=== PATIENT | male | born 1965 | race African-American/Black ===

== ENCOUNTER 2019-02-24 01:22 | Emergency (ER) | payer MEDICARE, OTHER ==
[~2019-02-24] VITALS: Ht 175.3 cm; Wt 63.6 kg
[2019-02-24 01:53] VITALS: BP 150/109
[2019-02-24] MEDS ORDERED: COREG (01:55)
[2019-02-24] MEDS ORDERED: SILVER NITRATE APPLICATOR TOP ONE (02:15)
[2019-02-24] MEDS ORDERED: CLON0.2T PO ×2 (20:17→21:35)
[2019-02-24] MEDS ORDERED: BANO25TA PO (21:35)
[2019-02-24] MEDS ORDERED: ATOR1TAB19 PO (21:35)
[2019-02-24] MEDS ORDERED: CYCL5TAB PO (21:35)
[2019-02-24] MEDS ORDERED: AMLO10TA5 PO (21:35)
[2019-02-24] MEDS ORDERED: DIPH50VL IV (21:35)
[2019-02-24] MEDS ORDERED: TUMS1000 PO (21:35)
[2019-02-24] MEDS ORDERED: CARV25TA PO (21:35)
== END 2019-02-24 02:30 | disposition home or self-care (01) ==
LOC: M ED 01:22
DX: T82.49XA Other complication of vascular dialysis catheter, initial encounter (principal); X58.XXXA Exposure to other specified factors, initial encounter; Y92.89 Other specified places as the place of occurrence of the external cause; I10 Essential (primary) hypertension; N19 Unspecified kidney failure; Z99.2 Dependence on renal dialysis; F17.210 Nicotine dependence, cigarettes, uncomplicated

== ENCOUNTER 2019-02-24 20:05 | Inpatient (IN) | payer MEDICAID, MEDICARE, SELFPAY ==
[~2019-02-24] VITALS: Ht 175.3 cm; Wt 68.0 kg
[~2019-02-24 20:05] MED LIST: COREG
[2019-02-24] MEDS ORDERED: CLON0.2T PO ×2 (20:17→21:35)
[2019-02-24] MEDS ORDERED: hydrALAZINE INJ 20 MG/ML VIAL IV STA ×3 (21:05→21:26)
[2019-02-24] MEDS ORDERED: hydrALAZINE INJ 20 MG/ML VIAL As Ordered ONE (21:06)
[2019-02-24 21:21] LABS: BASO # 0.1 10^3/uL (0.0-0.2); EOS # 0.2 10^3/uL (0.0-0.50); EOS % 2.7 % (0.0-3.0); HEMATOCRIT 39.1 % (42.0-52.0); HEMOGLOBIN 12.7 g/dl (13.5-17.5); LYMPH # 1.4 10^3/uL (1.5-4.5); LYMPH % 22.9 % (24.0-44.0); MEAN CORPUSCULAR HEMOGLOBIN 30.7 pg (27.0-33.0); MEAN CORPUSCULAR HGB CONC 32.5 g/dl (32.0-36.5); MEAN CORPUSCULAR VOLUME 94.4 fl (80.0-96.0); MONO # 0.5 10^3/uL (0.0-0.8); MONO % 8.8 % (0.0-5.0); NEUTROPHILS # 3.8 10^3/uL (1.8-7.7); NEUTROPHILS % 64.3 % (36.0-66.0); PLATELET COUNT, AUTOMATED 170 10^3/uL (150-450); RED BLOOD COUNT 4.14 10^6/uL (4.30-6.10); WHITE BLOOD COUNT 5.9 10^3/uL (4.0-10.0)
[2019-02-24] MEDS ORDERED: AMLO10TA5 PO (21:35)
[2019-02-24] MEDS ORDERED: DIPH50VL IV (21:35)
[2019-02-24] MEDS ORDERED: CYCL5TAB PO (21:35)
[2019-02-24] MEDS ORDERED: CARV25TA PO (21:35)
[2019-02-24] MEDS ORDERED: BANO25TA PO (21:35)
[2019-02-24] MEDS ORDERED: ATOR1TAB19 PO (21:35)
[2019-02-24] MEDS ORDERED: TUMS1000 PO (21:35)
[2019-02-24] MEDS ORDERED: NITROGLYCERIN IN D5W 25MG/250ML (100MCG/ML) As Ordered ONE (21:39)
[2019-02-24 21:42] LABS: CALCIUM LEVEL 9.1 MG/DL (8.5-10.1); CREATININE FOR GFR 14.3 MG/DL (0.70-1.30); GLOMERULAR FILTRATION RATE 4.7 (>56)
[2019-02-24 21:44] LABS: INR 1.08; PROTHROMBIN TIME 14.1 SECONDS (12.1-14.4)
[2019-02-24] MEDS ORDERED: MORPHINE 10 MG/ML 1ML VIAL (J2270) IV ONE (21:45)
[2019-02-24] MEDS: NITROGLYCERIN/D5W 100MCG/ML 25 MG in APPROPRIATE DILUENT 1 EA IV SCH ×2 (21:45→21:50)
[2019-02-24] MEDS ORDERED: CYCLOBENZAPRINE 5MG TABLET PO PRN (23:30)
[2019-02-24] MEDS ORDERED: diphenhydrAMINE 25 MG CAP PO PRN (23:30)
[2019-02-25] VITALS (27 sets, daily range): BP systolic 115–159; BP diastolic 63–99
[2019-02-25] MEDS: cloNIDine 0.2 MG TAB PO PRN (00:01)
[2019-02-25] MEDS ORDERED: LABETALOL HCL 100 MG/20 ML VIAL IV STA (01:04)
[2019-02-25] MEDS ORDERED: LABETALOL HCL 100 MG/20 ML VIAL As Ordered ONE (01:07)
--- NOTE | 2019-02-25 02:05 | HPEPDOC ---
General Date of Admission Feb 24, 2019 at 22:29 Chief Complaint The patient is a 53-year-old male admitted with a reason for visit of Hemorrhag e, Renal Dialysis Device Complication. 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 In ER pt was seen by vascular surgery team and AV fistula site was sutured after compression did not stop bleeding. Pt was scheduled to have surgery on March 12, 2019 at [facility] for new AV Fistula. Pt was started on iv nitro gtt due to uncontrolled hypertension. Hospitalist team was consulted to admit the pt for further management. Pt was seen and examined at bedside in ER. Pt was on nitro gtt. Pt stated that he is feeling fine and bleeding has stopped after suturing. Home Medications Scheduled Amlodipine Besylate (Amlodipine Besylate) 10 Mg Tablet, 10 MG PO 3XW, (Reported) MONDAY, MONDAY, MONDAY Atorvastatin Calcium (Atorvastatin Calcium) 10 Mg Tablet, 10 MG PO 3XW, (Reported) MONDAY, MONDAY, MONDAY Calcium Carbonate (Tums Ultra) 400 Mg Tab.chew, 800 MG PO WM, (Reported) Carvedilol (Carvedilol) 25 Mg Tablet, 25 MG PO BID, (Reported) Diphenhydramine HCl (Diphenhydramine HCl) 50 Mg/1 Ml Vial, 50 MG IV 3XW, (Reported) MONDAY, MONDAY, MONDAY AT DIALYSIS Scheduled PRN Clonidine HCl (Clonidine HCl) 0.2 Mg Tablet, 0.2 MG PO DAILY PRN for HIGH BLOOD PRESSURE, (Reported) SBP OVER 190 Cyclobenzaprine HCl (Cyclobenzaprine HCl) 5 Mg Tablet, 5 MG PO DAILY PRN for CRAMPS, (Reported) Diphenhydramine HCl (Banophen) 25 Mg Tablet, 25 MG PO DAILY PRN for ITCHING, (Reported) Allergies Coded Allergies: No Known Allergies (Unverified , 02/24/19) Past Medical History Medical History HTN, hypertensive nephropathy, ESRD on HD MWF, CHF- unknown type, nicotine dependence, HLD, AAA Surgical History AV fistula over left Arm Social History * Smoker: current smoker Alcohol: occationally h/o cocaine snorting A-FIB/CHADSVASC A-FIB History Current/History of A-Fib/PAF?: No Current Oral Anticoagulant The: No Review of Systems Other systems 10 points review of system was performed and it was negative except as per HPI Physical Examination General Exam: Positive: Alert, Cooperative, No Acute Distress Eye Exam: Positive: PERRLA, Conjunctiva & lids normal ENT Exam: Positive: Atraumatic, Mucous membr. moist/pink Neck Exam: Positive: Supple Chest Exam: Positive: Clear to auscultation, Normal air movement Heart Exam: Positive: Rate Normal, Normal S1, Normal S2 Abdomen Exam: Positive: Normal bowel sounds, Soft Extremity Exam: Positive: Normal pulses Skin Exam: Positive: Nl turgor and temperature Neuro Exam: Positive: Normal Speech, Strength at 5/5 X4 ext, Cranial Nerves 3- 12 NL Psych Exam: Positive: Mental status NL Other physical findings compression dressing in place over left arm AV fistula site Vital Signs Vital Signs Date Time Temp Pulse Resp B/P (MAP) Pulse Ox O2 Delivery O2 Flow Rate FiO2 02/25/19 01:30 86 16 125/66 (85) 02/25/19 00:30 99 02/25/19 00:20 97.5 02/25/19 00:05 Room Air Laboratory Data Labs 24H Laboratory Tests 2 02/24/19 21:10: Immature Granulocyte % (Auto) 0.3, White Blood Count 5.9, Red Blood Count 4.14L, Hemoglobin 12.7L, Hematocrit 39.1L, Mean Corpuscular Volume 94.4, Mean Corpuscular Hemoglobin 30.7, Mean Corpuscular Hemoglobin Concent 32.5, Red Cell Distribution Width 16.4H, Platelet Count 170, Neutrophils (%) (Auto) 64.3, Lymphocytes (%) (Auto) 22.9L, Monocytes (%) (Auto) 8.8H, Eosinophils (%) (Auto) 2.7, Basophils (%) (Auto) 1.0, Neutrophils # (Auto) 3.8, Lymphocytes # (Auto) 1.4L, Monocytes # (Auto) 0.5, Eosinophils # (Auto) 0.2, Basophils # (Auto) 0.1, Nucleated Red Blood Cells % (auto) 0.0, Prothrombin Time 14.1, Prothromb Time International Ratio 1.08, Activated Partial Thromboplast Time 43.0H, Anion Gap 10, Glomerular Filtration Rate 4.7L, Blood Urea Nitrogen 44H, Creatinine 14.30*H, Sodium Level 136, Potassium Level 4.0, Chloride Level 100, Carbon Dioxide Level 26, Calcium Level 9.1 CBC/BMP Laboratory Tests 02/24/19 21:10 Red Blood Count 4.14 L, Mean Corpuscular Volume 94.4, Mean Corpuscular Hemoglob in 30.7, Mean Corpuscular Hemoglobin Concent 32.5, Red Cell Distribution Width 16.4 H, Neutrophils (%) (Auto) 64.3, Lymphocytes (%) (Auto) 22.9 L, Monocytes (%) (Auto) 8.8 H, Eosinophils (%) (Auto) 2.7, Basophils (%) (Auto) 1.0, Neutrophils # (Auto) 3.8, Lymphocytes # (Auto) 1.4 L, Monocytes # (Auto) 0.5, Eosinophils # (Auto) 0.2, Basophils # (Auto) 0.1, Calcium Level 9.1 Assessment/Plan Labs reviewed 53 y/o M with h/o left arm AV fistula aneurysm came to ER c/o blood oozing from AV fistula site, found to have significantly elevated BP, AV fistula was sutured by vascular surgery. plan was to take pt to OR by vascular surgery in morning, to have temporary catheter placement for HD access. Problems (1) Renal dialysis device, implant, or graft complication Status: Acute Problem Text: bleeding from AV fistula aneurysm site s/p suturing in ER will keep pt NPO for now will f/u with vascular surgery (2) HTN (hypertension) Status: Chronic Problem Text: uncontrolled will continue home meds pt was started on iv nitro gtt for uncontrolled hypertension in view of bleeding from AV fistula site will continue iv nitro gtt for now. will uptitrate home antihypertensive and add new agents as needed. (3) HLD (hyperlipidemia) Status: Chronic Problem Text: home meds (4) Nicotine dependence Status: Chronic Problem Text: pt was counselled about smoking cessation (5) ESRD (end stage renal disease) Status: Chronic Problem Text: will f/u with nephrology service for HD (6) CHF (congestive heart failure) Status: Chronic Problem Text: unknown will get medical records from PMD in morning home meds (7) AAA (abdominal aortic aneurysm) Status: Chronic Problem Text: on surveillance US As per pt his AAA is stable will get medical records from PMD Plan / VTE VTE Prophylaxis Ordered?: No VTE Exclusion Pharmacological: Bleeding Risk ARTHUR DAILEY MD Feb 25, 2019 02:04
[2019-02-25] MEDS ORDERED: diphenhydrAMINE INJ 50MG/ML VIAL (J1200) IV STA (02:33)
[2019-02-25] MEDS: NITROGLYCERIN/D5W 100MCG/ML 25 MG in APPROPRIATE DILUENT 1 EA IV SCH ×4 (04:11→19:13)
[2019-02-25 05:08] LABS: HEMATOCRIT 34.4 % (42.0-52.0); HEMOGLOBIN 11.2 g/dl (13.5-17.5); MEAN CORPUSCULAR HEMOGLOBIN 30.4 pg (27.0-33.0); MEAN CORPUSCULAR HGB CONC 32.6 g/dl (32.0-36.5); MEAN CORPUSCULAR VOLUME 93.2 fl (80.0-96.0); PLATELET COUNT, AUTOMATED 164 10^3/uL (150-450); RED BLOOD COUNT 3.69 10^6/uL (4.30-6.10); WHITE BLOOD COUNT 7.4 10^3/uL (4.0-10.0)
[2019-02-25 05:20] LABS: INR 1.12; PROTHROMBIN TIME 14.6 SECONDS (12.1-14.4)
[2019-02-25 05:41] LABS: CALCIUM LEVEL 9.2 MG/DL (8.5-10.1); CREATININE FOR GFR 15.5 MG/DL (0.70-1.30); GLOMERULAR FILTRATION RATE 4.3 (>56); POTASSIUM SERUM 3.9 MEQ/L (3.5-5.1)
[2019-02-25] MEDS ORDERED: CALCIUM CARBONATE 500 MG CHEW U/D PO SCH (08:00)
[2019-02-25] MEDS: ATORVASTATIN 10 MG TAB PO SCH (08:35)
[2019-02-25] MEDS: CARVedilol 12.5 MG TAB PO SCH ×2 (08:35→20:38)
[2019-02-25] MEDS: amLODIPine 10 MG TAB PO SCH (08:35)
[2019-02-25] MEDS: ACETAMINOPHEN TAB 650MG DOSE (2X325MG) PO PRN (08:36)
[2019-02-25] MEDS ORDERED: diphenhydrAMINE INJ 50MG/ML VIAL (J1200) IV PRN (10:45)
--- NOTE | 2019-02-25 12:26 | IPNPDOC ---
Date Seen The patient was seen on 02/25/19. Progress Note SUBJECTIVE: Patient requesting food and drink, but pt npo for sx later today to fix his fisular by Dr. Kerr. Informed pt why he is NPO. He understand. Patient complained of generalized itching, will try Benadryl and monitor for any allergic reaction. OBJECTIVE VITAL SIGNS: Please see below GENERAL APPEARANCE: Resting in bed HEENT: Normocephalic, PERRLA, Mucous moist CARDIOVASCULAR: S1,S2, pulse present, regularly, regular LUNGS: Equal air entry b/l, no wheezes or crackle ABDOMEN: Soft, BS present, no tenderness, no guarding GENITOURINARY: No Perez EXTREMITIES: B/L no edema, capillary refill present, left arm fistular bandaged and sign of blood SKIN: Warm, No fever LABORATORY DATA, IMAGING STUDIES, MICROBIOLOGY: Please see below. 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 In ER pt was seen by vascular surgery team and AV fistula site was sutured after compression did not stop bleeding. Pt was scheduled to have surgery on March 12, 2019 at [facility] for new AV Fistula. Pt was started on iv nitro gtt due to uncontrolled hypertension. Hospitalist team was consulted to admit the pt for further management. Renal dialysis, left arm graft AV fistula complication with bleeding -s/p suturing in ER -NPO for vascular surgery later today -vacular consult w Dr. eKrr History of hypertension, uncontrolled uncontrolled hypertension -home meds carvedilol, norvasc -iv nitro gtt for uncontrolled hypertension in view of bleeding from AV fistula site -Consult renal as pt ESRD on HD HLD (hyperlipidemia) -home med statin Nicotine dependence - pt was counselled about smoking cessation ESRD (end stage renal disease) -nephrology service for HD CHF (congestive heart failure) -will get medical records from PMD -home meds AAA (abdominal aortic aneurysm) -on surveillance US as outpatient -As per pt his AAA is stable -medical records from PMD DVT prop w HUMBERTO and SCD DISPOSITION: [reassess after acute issues resolve]. A-FIB/CHADSVASC A-FIB History Current/History of A-Fib/PAF?: No VS, I&O, 24H, Fishbone Vital Signs/I&O Vital Signs Date Time Temp Pulse Resp B/P (MAP) Pulse Ox O2 Delivery O2 Flow Rate FiO2 02/25/19 10:07 92 18 115/63 (80) 02/25/19 08:18 99.0 99 02/25/19 00:05 Room Air I&O- Last 24 Hours up to 6 AM 02/25/19 06:00 Intake Total 528 ml Output Total 0 ml Balance 528 ml Laboratory Data 24H LABS Laboratory Tests 2 02/24/19 21:10: Immature Granulocyte % (Auto) 0.3, White Blood Count 5.9, Red Blood Count 4.14L, Hemoglobin 12.7L, Hematocrit 39.1L, Mean Corpuscular Volume 94.4, Mean Corpuscular Hemoglobin 30.7, Mean Corpuscular Hemoglobin Concent 32.5, Red Cell Distribution Width 16.4H, Platelet Count 170, Neutrophils (%) (Auto) 64.3, Lymphocytes (%) (Auto) 22.9L, Monocytes (%) (Auto) 8.8H, Eosinophils (%) (Auto) 2.7, Basophils (%) (Auto) 1.0, Neutrophils # (Auto) 3.8, Lymphocytes # (Auto) 1.4L, Monocytes # (Auto) 0.5, Eosinophils # (Auto) 0.2, Basophils # (Auto) 0.1, Nucleated Red Blood Cells % (auto) 0.0, Prothrombin Time 14.1, Prothromb Time International Ratio 1.08, Activated Partial Thromboplast Time 43.0H, Anion Gap 10, Glomerular Filtration Rate 4.7L, Blood Urea Nitrogen 44H, Creatinine 14.30*H, Sodium Level 136, Potassium Level 4.0, Chloride Level 100, Carbon Dioxide Level 26, Calcium Level 9.1 02/25/19 04:48: Nucleated Red Blood Cells % (auto) 0.0, Prothrombin Time 14.6H, Prothromb Time International Ratio 1.12, Anion Gap 11, Glomerular Filtration Rate 4.3L, Blood Urea Nitrogen 46H, Creatinine 15.50*H, Sodium Level 134L, Potassium Level 3.9, Chloride Level 99, Carbon Dioxide Level 24, Calcium Level 9.2 CBC/BMP Laboratory Tests 02/24/19 21:10 Red Blood Count 4.14 L, Mean Corpuscular Volume 94.4, Mean Corpuscular Hemoglobin 30.7, Mean Corpuscular Hemoglobin Concent 32.5, Red Cell Distribution Width 16.4 H, Neutrophils (%) (Auto) 64.3, Lymphocytes (%) (Auto) 22.9 L, Monocytes (%) (Auto) 8.8 H, Eosinophils (%) (Auto) 2.7, Basophils (%) (Auto) 1.0, Neutrophils # (Auto) 3.8, Lymphocytes # (Auto) 1.4 L, Monocytes # (Auto) 0.5, Eosinophils # (Auto) 0.2, Basophils # (Auto) 0.1, Calcium Level 9.1 02/25/19 04:48 Red Blood Count 3.69 L, Mean Corpuscular Volume 93.2, Mean Corpuscular Hemoglobin 30.4, Mean Corpuscular Hemoglobin Concent 32.6, Red Cell Distribution Width 16.0 H, Calcium Level 9.2 CARLOS GALLEGOS MD Feb 25, 2019 12:26
[2019-02-25] MEDS: CALCIUM CARBONATE 500 MG CHEW U/D PO SCH ×2 (13:32→17:15)
--- NOTE | 2019-02-25 15:02 | CR.PDOC ---
General Date of Consultation: Feb 25, [address] 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 In ER pt was seen by Dr Kerr, vascular surgery with AV fistula site suture after compression did not stop bleeding. Pt was scheduled to have surgery on March 12, 2019 at [facility] for new AV Fistula. Pt was started on iv nitro gtt due to uncontrolled hypertension. No further bleeding from AVF since admission. HD planned this afternoon. Denies any fevers, chills, weakness, fatigue, Headache, Chest Pain, Shortness of breath, cough, palpitations, abdominal pain, N/V/D or changes in bowel or bladder habits. Medical History HTN, hypertensive nephropathy, ESRD on HD MWF, CHF- unknown type, nicotine dependence, HLD, AAA Surgical History AV fistula over left Arm SOCHX: Tobacco use: smoker ETOH: occassional Illicit Drugs: h/o cocaine FAMHX: non contributory ROS: As noted in HPI, otherwise 11pt ROS of systems reviewed and unremarkable. PE: GEN: 53yoM, appears stated age. Well-nourished, well developed. No acute distress. HEENT: Normocephalic, atraumatic. Sclera are nonicteric. Conjunctiva without injection. Moist mucous membranes. CHEST: Regular rate and rhythm, +S1, +S2 LUNGS: Clear to auscultation bilaterally. No wheezes, rales, or rhonchi. Breathing appears symmetric and easy. ABD: Round, soft, non-tender, non-distended. +Bowel sounds throughout. No rebound or guarding. EXT: No lower extremity edema appreciated. SKIN: Arion, dry, warm. No rashes. NEURO: Alert and oriented x 3. Cranial nerves III-XII are intact. No focal deficits appreciated. 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 In ER pt was seen by Dr Kerr, vascular surgery with AV fistula site suture after compression did not stop bleeding. Pt was scheduled to have surgery on March 12, 2019 at [facility] for new AV Fistula. Pt was started on iv nitro gtt due to uncontrolled hypertension. No further bleeding from AVF since admission. HD planned this afternoon. 1. AVF LUE, h/o AV fistula aneurysm, S/P bleeding. No further bleeding reported at this time. Dr. Kerr planning to proceed with AVF revision, likely 02/26/19. 2. ESRD. HD as per nephrology. 3. Hypertension. Management as per primary team. 4. Dyslipidemia. Statin Thank you for your consultation. We will continue to follow along with you. Vital Signs/I&O Vital Signs Date Time Temp Pulse Resp B/P (MAP) Pulse Ox O2 Delivery O2 Flow Rate FiO2 02/25/19 13:07 93 18 124/68 (86) 02/25/19 12:07 99.3 97 02/25/19 00:05 Room Air I&O- Last 24 Hours up to 6 AM 02/25/19 06:00 Intake Total 528 ml Output Total 0 ml Balance 528 ml Laboratory Data Labs 24H Laboratory Tests 2 02/24/19 21:10: Immature Granulocyte % (Auto) 0.3, White Blood Count 5.9, Red Blood Count 4.14L, Hemoglobin 12.7L, Hematocrit 39.1L, Mean Corpuscular Volume 94.4, Mean Corpuscular Hemoglobin 30.7, Mean Corpuscular Hemoglobin Concent 32.5, Red Cell Distribution Width 16.4H, Platelet Count 170, Neutrophils (%) (Auto) 64.3, Lymphocytes (%) (Auto) 22.9L, Monocytes (%) (Auto) 8.8H, Eosinophils (%) (Auto) 2.7, Basophils (%) (Auto) 1.0, Neutrophils # (Auto) 3.8, Lymphocytes # (Auto) 1.4L, Monocytes # (Auto) 0.5, Eosinophils # (Auto) 0.2, Basophils # (Auto) 0.1, Nucleated Red Blood Cells % (auto) 0.0, Prothrombin Time 14.1, Prothromb Time International Ratio 1.08, Activated Partial Thromboplast Time 43.0H, Anion Gap 10, Glomerular Filtration Rate 4.7L, Blood Urea Nitrogen 44H, Creatinine 14.30*H, Sodium Level 136, Potassium Level 4.0, Chloride Level 100, Carbon Dioxide Level 26, Calcium Level 9.1 02/25/19 04:48: Nucleated Red Blood Cells % (auto) 0.0, Prothrombin Time 14.6H, Prothromb Time International Ratio 1.12, Anion Gap 11, Glomerular Filtration Rate 4.3L, Blood Urea Nitrogen 46H, Creatinine 15.50*H, Sodium Level 134L, Potassium Level 3.9, Chloride Level 99, Carbon Dioxide Level 24, Calcium Level 9.2 CBC/BMP Laboratory Tests 02/24/19 21:10 Red Blood Count 4.14 L, Mean Corpuscular Volume 94.4, Mean Corpuscular Hemoglobin 30.7, Mean Corpuscular Hemoglobin Concent 32.5, Red Cell Distribution Width 16.4 H, Neutrophils (%) (Auto) 64.3, Lymphocytes (%) (Auto) 22.9 L, Monocytes (%) (Auto) 8.8 H, Eosinophils (%) (Auto) 2.7, Basophils (%) (Auto) 1.0, Neutrophils # (Auto) 3.8, Lymphocytes # (Auto) 1.4 L, Monocytes # (Auto) 0.5, Eosinophils # (Auto) 0.2, Basophils # (Auto) 0.1, Calcium Level 9.1 02/25/19 04:48 Red Blood Count 3.69 L, Mean Corpuscular Volume 93.2, Mean Corpuscular Hemoglobin 30.4, Mean Corpuscular Hemoglobin Concent 32.6, Red Cell Distribution Width 16.0 H, Calcium Level 9.2 Allergies Coded Allergies: No Known Allergies (Unverified , 02/24/19) Home Medications Scheduled Amlodipine Besylate (Amlodipine Besylate) 10 Mg Tablet, 10 MG PO 3XW, (Reported) MONDAY, MONDAY, MONDAY Atorvastatin Calcium (Atorvastatin Calcium) 10 Mg Tablet, 10 MG PO 3XW, (Reported) MONDAY, MONDAY, MONDAY Calcium Carbonate (Tums Ultra) 400 Mg Tab.chew, 800 MG PO WM, (Reported) Carvedilol (Carvedilol) 25 Mg Tablet, 25 MG PO BID, (Reported) Diphenhydramine HCl (Diphenhydramine HCl) 50 Mg/1 Ml Vial, 50 MG IV 3XW, (Reported) MONDAY, MONDAY, MONDAY AT DIALYSIS Scheduled PRN Clonidine HCl (Clonidine HCl) 0.2 Mg Tablet, 0.2 MG PO DAILY PRN for HIGH BLOOD PRESSURE, (Reported) SBP OVER 190 Cyclobenzaprine HCl (Cyclobenzaprine HCl) 5 Mg Tablet, 5 MG PO DAILY PRN for CRAMPS, (Reported) Diphenhydramine HCl (Banophen) 25 Mg Tablet, 25 MG PO DAILY PRN for ITCHING, (Reported) Debora Card Feb 25, 2019 15:02
[2019-02-25] MEDS: diphenhydrAMINE INJ 50MG/ML VIAL (J1200) IV PRN (17:14)
--- NOTE | 2019-02-25 19:55 | CR ---
DATE OF CONSULTATION: 02/25/2019 REQUESTING PHYSICIAN: Dr. Rik Cooper CONSULTING PHYSICIAN: Dr. Summers REASON FOR CONSULTATION: Management of end-stage renal disease and hemodialysis. CHIEF COMPLAINT: The patient presented to the hospital with bleeding from the left upper arm arteriovenous (AV) fistula site. HISTORY OF PRESENT ILLNESS: Mr. Sunny Smith is a 53-year-old male with past medical history of end-stage renal disease, on hemodialysis, who is transiently getting hemodialysis at [facility]. His home hemodialysis center is in [place], [place]. He has a large aneurysmal left upper arm AV fistula. He presented to the emergency room (ER) with bleeding from the left upper arm AV fistula site. He was initially discharged home, but he came back to the ER with bleeding from the fistula again. The patient was seen by vascular surgery. Bleeding site was sutured by vascular surgery. He was admitted under the hospitalist service overnight. Nephrology service was called for further help in the management of end-stage renal disease. The patient also had uncontrolled hypertension. He was started on intravenous (IV) nitroglycerin drip. He is currently in the intensive care unit (ICU). Today is his regular day of dialysis. I saw and evaluated the patient today morning. He has a large dressing on the left upper arm AV fistula site. He denies any more bleeding from the fistula site. He is afebrile and hemodynamically stable. Blood pressures have improved within the normal range with the nitroglycerine. PAST MEDICAL HISTORY: 1. End-stage renal disease on hemodialysis. 2. History of hypertension. 3. Hyperlipidemia. 4. Chronic kidney disease. 5. Mineral bone disease. 6. Congestive heart failure. 7. History of abdominal aortic aneurysm. PAST SURGICAL HISTORY: History of left upper arm AV fistula placement. ALLERGIES: No known drug allergies. FAMILY HISTORY: No significant family history of end-stage renal disease requiring hemodialysis. SOCIAL HISTORY: The patient is an active smoker. He has a history of cocaine abuse in the past, and he uses alcohol socially. REVIEW OF SYSTEMS: CONSTITUTIONAL: He denies any fevers or chills. EYES: He denies any blurry vision, double vision. ENT: Denies any dysphagia, odynophagia, ear discharge. CARDIOVASCULAR: He denies any chest or palpitation. RESPIRATORY: He denies any shortness of breath or cough. GASTROINTESTINAL: He denies any nausea, vomiting. GENITOURINARY: He denies any dysuria or hematuria. MUSCULOSKELETAL: He denies any muscle aches and pains. SKIN: He denies any rashes or ulcers. CENTRAL NERVOUS SYSTEM (EMBEDDED LINUX DEVELOPER): He denies any strokes or seizures. HEMATOLOGIC/ONCOLOGIC: He is admitted with the bleeding from the left upper arm AV fistula site all. Other review of systems is negative. PHYSICAL EXAMINATION: GENERAL: The patient is awake, alert, oriented times three, lying in bed in no apparent distress. VITAL SIGNS: Temperature is 99.3 degrees Fahrenheit, blood pressure 140/99, pulse is 94, respiratory rate of 22, saturating 96% on room air. HEAD AND NECK: Extraocular muscles intact. Pupils equally round and reactive to light. Mucous membranes are moist. NECK: Supple. There is no jugular venous distention (JVD). CARDIOVASCULAR: S1, S2, regular rate. No edema of the bilateral lower extremities. RESPIRATORY: Chest is clear to auscultation bilaterally. Bilateral equal air entry. No rales or rhonchi. ABDOMEN: Soft. Positive bowel sounds. Nontender. No ascites. No organomegaly. MUSCULOSKELETAL: No clubbing or cyanosis. Pulses are 2+. AV ACCESS: Patient has a left upper arm AV fistula, which is covered with a dressing at this point. Positive thrill and bruit. CENTRAL NERVOUS SYSTEM: No focal deficit. Power is 5/5 in all extremities. PSYCHIATRIC: Normal mood and affect. LABORATORY REVIEW: CBC showed a WBC of 7.4, hemoglobin 11.2, platelets of 164. INR is 1.12. BMP showed sodium 134, potassium 3.9, chloride 99, bicarbonate 24, BUN 46, creatinine is 15, glucose 117, calcium is 9.2. CURRENT INPATIENT MEDICATIONS: The patient's medications were all reviewed by me. He is currently on: - nitroglycerin drip - Tylenol as needed - amlodipine 10 mg daily - Lipitor 10 mg by mouth Monday, Monday, Monday - Tums 1 gram by mouth with meals - Coreg 25 mg by mouth twice a day - clonidine 0.2 mg by mouth daily - Flexeril 5 mg by mouth as needed for cramps - Benadryl as needed He was also given hydralazine at night time and morphine 5 mg intravenous (IV) one dose. ASSESSMENT: A 53-year-old male with a history of end-stage renal disease, on hemodialysis, hypertension, hyperlipidemia, history of drug abuse, admitted with hypertensive urgency and bleeding from the upper left upper arm AV fistula site. PLAN: 1. Bleeding from left upper arm AV fistula site. The patient got the fistula sutured from vascular surgery. Rest of the management is as per vascular surgery. I clarified with them, and it is okay to use the fistula for dialysis today. 2. End-stage renal disease, on hemodialysis. Today is the patient's regular day of dialysis. He will be dialyzed today, and I will try to do at least 2.5 liters of ultrafiltration as tolerated by his blood pressure. 3. Accelerated hypertension. Okay to continue current dose of amlodipine and Coreg with clonidine. Continue the nitroglycerin drip. Volume management with dialysis will also help reduce the blood pressure. Avoid use of IV hydralazine in this patient with history of abdominal aortic aneurysm. 4. Anemia and end-stage renal disease. Hemoglobin is 11.2, which is optimal. No need of use of erythropoietin stimulating agents (HUMPHREY) at this point. 5. History of abdominal aortic aneurysm. Optimize the blood pressure as mentioned above. Target blood pressure less than 130 systolic. Avoid use of hydralazine and minoxidil. Thank you for involving me in the care of this patient. I shall be happy to follow the patient along with you tomorrow morning.
--- NOTE | 2019-02-25 22:55 | TRANSCARE ---
Transition of Care: Transition of Care Bleeding from Renal dialysis AV fistula aneurysm; pt planned for vascular surgery tmrw morning. Also has abdominal aortic aneurysm. Received phone call from nursing regarding BP; Pt on IV nitroglycerin which was ordered to keep SBP less than 110 however it is difficult to titrate SBP<110 as it might require ma ximum dose Nitroglycerin. Per consultation document from Dr. Vladimir Summers, Target blood pressure less than 130 systolic. Discussed with nursing to aim to titrate SBP<110 with current IV nitroglycerin order, but it is tolerable as long as SBP<130 per specialist consultation note DAT HAYES DO Feb 25, 2019 22:55
[2019-02-26] VITALS (46 sets, daily range): BP systolic 107–155; BP diastolic 52–82
[2019-02-26] MEDS: diphenhydrAMINE INJ 50MG/ML VIAL (J1200) IV PRN ×3 (00:09→20:17)
[2019-02-26] MEDS: ACETAMINOPHEN TAB 650MG DOSE (2X325MG) PO PRN ×2 (00:10→17:02)
[2019-02-26 05:42] LABS: HEMATOCRIT 32.5 % (42.0-52.0); HEMOGLOBIN 10.6 g/dl (13.5-17.5); MEAN CORPUSCULAR HGB CONC 32.6 g/dl (32.0-36.5); PLATELET COUNT, AUTOMATED 146 10^3/uL (150-450); RED BLOOD COUNT 3.42 10^6/uL (4.30-6.10); WHITE BLOOD COUNT 8.8 10^3/uL (4.0-10.0)
[2019-02-26 06:04] LABS: CALCIUM LEVEL 9.5 MG/DL (8.5-10.1); CREATININE FOR GFR 10.6 MG/DL (0.70-1.30); GLOMERULAR FILTRATION RATE 6.6 (>56)
[2019-02-26] MEDS: NITROGLYCERIN/D5W 100MCG/ML 25 MG in APPROPRIATE DILUENT 1 EA IV SCH ×3 (06:29)
[2019-02-26] MEDS: CALCIUM CARBONATE 500 MG CHEW U/D PO SCH ×3 (08:06→17:03)
[2019-02-26] MEDS: amLODIPine 10 MG TAB PO SCH (08:44)
[2019-02-26] MEDS: CARVedilol 12.5 MG TAB PO SCH ×2 (08:44→20:17)
[2019-02-26] MEDS ORDERED: fentaNYL 100 MCG/2 ML INJECTION (J3010) As Ordered ONE (08:53)
[2019-02-26] MEDS ORDERED: MIDAZOLAM INJ 2 MG/2 ML VIAL (J2250) As Ordered ONE (08:53)
[2019-02-26] MEDS ORDERED: KETAMINE HCL 200 MG/20 ML VIAL As Ordered ONE (08:53)
[2019-02-26] MEDS ORDERED: PROPOFOL 200 MG/20 ML VIAL As Ordered ONE (08:54)
[2019-02-26] MEDS ORDERED: LIDOCAINE 2% INJ 100 MG/5 ML SDV (FOR ANES.) As Ordered ONE (08:54)
--- NOTE | 2019-02-26 09:09 | IPNPDOC ---
Date Seen The patient was seen on 02/26/19. Progress Note SUBJECTIVE: BP improved on nitroglycerin gtt, to be transitioned to po meds today. no c/o chest pain, headache, changes in vision. OBJECTIVE VITAL SIGNS: Please see below GENERAL APPEARANCE: Resting in bed HEENT: Normocephalic, PERRLA, Mucous moist CARDIOVASCULAR: S1,S2, pulse present, regularly, regular LUNGS: Equal air entry b/l, no wheezes or crackle ABDOMEN: Soft, BS present, no tenderness, no guarding GENITOURINARY: No Perez EXTREMITIES: B/L no edema, capillary refill present, left arm fistular bandaged and sign of blood SKIN: Warm, No fever LABORATORY DATA, IMAGING STUDIES, MICROBIOLOGY: Please see below. 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 In ER pt was seen by vascular surgery team and AV fistula site was sutured after compression did not stop bleeding. Pt was scheduled to have surgery on March 12, 2019 at [facility] for new AV Fistula. Pt was started on iv nitro gtt due to uncontrolled hypertension. Hospitalist team was consulted to admit the pt for further management. Renal dialysis, left arm graft AV fistula complication with bleeding -s/p suturing in ER -NPO for vascular surgery later today -vacular consult w Dr. Kerr History of hypertension, uncontrolled uncontrolled hypertension -home meds carvedilol, norvasc -s/p iv nitro gtt for uncontrolled hypertension in view of bleeding from AV fistula site -Consult renal as pt ESRD on HD -isosorbide and hydralazine to be titrated to allow discontinuation of nitro iv gtt. -prn iv metoprolol for sbp>140 or dbp>90 HLD (hyperlipidemia) -home med statin Nicotine dependence - pt was counselled about smoking cessation ESRD (end stage renal disease) -nephrology service for HD CHF (congestive heart failure) -will get medical records from PMD -home meds AAA (abdominal aortic aneurysm) -on surveillance US as outpatient -As per pt his AAA is stable -medical records from PMD DVT prop w HUMBERTO and SCD disposition: transfer to pcu. A-FIB/CHADSVASC A-FIB History Current/History of A-Fib/PAF?: No Current Oral Anticoagulant The: No VS, I&O, 24H, Fishbone Vital Signs/I&O Vital Signs Date Time Temp Pulse Resp B/P (MAP) Pulse Ox O2 Delivery O2 Flow Rate FiO2 02/26/19 08:44 97 124/72 02/26/19 04:00 99.0 18 100 02/25/19 00:05 Room Air I&O- Last 24 Hours up to 6 AM 02/26/19 06:00 Intake Total 1774 ml Output Total 2500 ml Balance -726 ml Laboratory Data 24H LABS Laboratory Tests 2 02/26/19 05:28: Nucleated Red Blood Cells % (auto) 0.0, Anion Gap 8, Glomerular Filtration Rate 6.6L, Blood Urea Nitrogen 25H, Creatinine 10.60*H, Sodium Level 134L, Potassium Level 4.0, Chloride Level 99, Carbon Dioxide Level 27, Calcium Level 9.5 CBC/BMP Laboratory Tests 02/26/19 05:28 Red Blood Count 3.42 L, Mean Corpuscular Volume 95.0, Mean Corpuscular Hemoglobin 31.0, Mean Corpuscular Hemoglobin Concent 32.6, Red Cell Distribution Width 16.5 H, Calcium Level 9.5 BENEDICT WHITAKER MD Feb 26, 2019 09:09
[2019-02-26] MEDS ORDERED: METOPROLOL 5 MG/5 ML VIAL IV PRN (09:15)
[2019-02-26] MEDS ORDERED: hydrALAZINE INJ 20 MG/ML VIAL IV SCH (10:00)
[2019-02-26] MEDS: ISOSORBIDE DIN. (ISORDIL) 20 MG TAB PO SCH ×2 (11:40→17:03)
[2019-02-26] MEDS ORDERED: HEPARIN SOD (PORCINE) 5000 UNITS/ML VIAL As Ordered ONE (14:08)
[2019-02-26] MEDS ORDERED: LIDOCAINE 1% SDV INJ 30 ML VIAL As Ordered ONE (14:08)
[2019-02-26] MEDS ORDERED: BUPIVACAINE HCL 0.5% 30 ML VIAL As Ordered ONE (14:08)
[2019-02-26] MEDS ORDERED: PROTAMINE SULF INJ 50 MG/5 ML VIAL (J2720) As Ordered ONE (15:24)
[2019-02-26] MEDS ORDERED: ONDANSETRON 4MG/2ML VIAL (J2405) IV PRN (16:15)
[2019-02-26] MEDS ORDERED: PERCOCET 5MG/325MG TAB PO PRN ×2 (16:15→17:15)
[2019-02-26] MEDS ORDERED: HYDROMORPHONE HCL 0.5 MG/ 0.5 ML SYRINGE (J1170 PER 1) IV PRN (16:15)
[2019-02-26] MEDS ORDERED: fentaNYL 100 MCG/2 ML INJECTION (J3010) IV PRN (16:15)
[2019-02-26] MEDS: PERCOCET 5MG/325MG TAB PO PRN ×2 (17:47→23:53)
--- NOTE | 2019-02-26 18:39 | IPN ---
DATE: 02/26/2019 SUBJECT: The patient was seen and examined at the bedside today morning in the intensive care unit (ICU). He continues to be on IV nitroglycerin infusion. He was dialyzed yesterday, 2.5 liters of fluid was removed. He tolerated the hemodialysis procedure well. The patient reports that the he is planning to have the revision of the left upper arm AV fistula done by vascular surgery today. OBJECTIVE: Vital signs: Temperature is 99.6 degrees Fahrenheit, blood pressure 132/77, pulse is 85, respiratory rate of 16, saturating 97% on room air. Intake and output. There is no urine output recorded. Ultrafiltration with hemodialysis was 2.5 liters, weight in the bed scale is 66.8 kg. PHYSICAL EXAMINATION: General: The patient is awake, alert, oriented x3, laying in bed in no apparent distress. Head and neck exam: Extraocular muscles intact. Pupils equally round and reactive to light. Mucous membranes are moist. Neck is supple. There is no jugular venous distension (JVD). Cardiovascular: S1, S2 regular rate. No edema of the bilateral lower extremities. Respiratory: Chest is clear to auscultation bilaterally. Bilateral equal air entry. No rales or rhonchi. Abdomen: Soft. Positive bowel sounds. Nontender. No organomegaly. Musculoskeletal: No clubbing or cyanosis. He has a dressing on the left upper arm at the AV fistula site. LEGAL WORD PROCESSOR: No focal deficit. Power is 5/5 in all extremities. LABORATORY REVIEW: Complete blood count (CBC) showed a WBC of 8.8, hemoglobin 10.6, platelets of 146. Basic metabolic panel (BMP) shows sodium 134, potassium 4, chloride 99, bicarb 27, BUN 25, creatinine is 10.6. CURRENT INPATIENT MEDICATIONS: The patient medications were all reviewed by me. Nitroglycerin drip is being weaned off. He is currently on 75 mcg of nitroglycerine. He continues to be on Coreg 25 mg by mouth twice a day. He has been started on isosorbide dinitrate 20 mg by mouth three times a day. ASSESSMENT/PLAN: 1. End-stage renal disease on hemodialysis. The patient was dialyzed yesterday according to his regular schedule. 2. Hemodialysis session will be tomorrow. No urgent need of hemodialysis today. 3. Bleeding, left upper arm AV fistula site. The patient got suturing of the bleeding site. However, he has a large tortuous fistula. He would need revision of the AV fistula and he is going to the OR with vascular surgery today. 4. Uncontrolled hypertension. The patient is supposed to get Coreg only at home. Right now his blood pressures are high despite being on Coreg and IV nitroglycerin drip. He has been started on oral isosorbide dinitrate. He was also started on hydralazine every 8 hours, which usually was very well in the [place], but given his history of abdominal aortic aneurysm, I would avoid using hydralazine at this patient. 5. Anemia in end-stage renal disease. The patient's hemoglobin is 10.6 which is optimal. I am going to start the patient on Aranesp with hemodialysis. 6. Chronic kidney disease, mineral bone disease. The patient takes Tums as outpatient. He is currently taking Tums 1 gram by mouth with meals three times a day.
[2019-02-26] MEDS: MORPHINE 4 MG/ML 1ML VIAL/SYRINGE (J2270) IV PRN ×2 (19:42→23:52)
[2019-02-27] VITALS (21 sets, daily range): BP systolic 123–184; BP diastolic 56–92
[2019-02-27] MEDS: MORPHINE 4 MG/ML 1ML VIAL/SYRINGE (J2270) IV PRN ×3 (02:12→14:21)
[2019-02-27] MEDS: cloNIDine 0.2 MG TAB PO PRN (02:12)
[2019-02-27 05:27] LABS: HEMATOCRIT 28.2 % (42.0-52.0); MEAN CORPUSCULAR HGB CONC 31.9 g/dl (32.0-36.5); PLATELET COUNT, AUTOMATED 133 10^3/uL (150-450); WHITE BLOOD COUNT 7.3 10^3/uL (4.0-10.0)
[2019-02-27 05:32] LABS: CALCIUM LEVEL 8.5 MG/DL (8.5-10.1); CREATININE FOR GFR 13.6 MG/DL (0.70-1.30); POTASSIUM SERUM 4.7 MEQ/L (3.5-5.1)
[2019-02-27] MEDS: ISOSORBIDE DIN. (ISORDIL) 20 MG TAB PO SCH ×3 (07:00→14:50)
--- NOTE | 2019-02-27 07:45 | IPNPDOC ---
Date Seen The patient was seen on 02/27/19. Progress Note SUBJECTIVE:Per vascular surgery, fistula was infected. plans for permacath today. npo after midnight. per dr. kerr,vascular surgery, february dc home after permacath placed. blood pressure stable overnight, off nitro gtt and iv hydralazine. no c/o chest pain, headache, changes in vision. on coreg, norvasc, imdur, and clonidine. stable for transfer to [facility]. left arm bandaged from hand to mid upper arm. no c/o pain. OBJECTIVE VITAL SIGNS: Please see below GENERAL APPEARANCE: Resting in bed HEENT: Normocephalic, PERRLA, Mucous moist CARDIOVASCULAR: S1,S2, pulse present, regularly, regular LUNGS: Equal air entry b/l, no wheezes or crackle ABDOMEN: Soft, BS present, no tenderness, no guarding GENITOURINARY: No Perez EXTREMITIES: B/L no edema, capillary refill present, left arm fistular bandaged and sign of blood SKIN: Warm, No fever LABORATORY DATA, IMAGING STUDIES, MICROBIOLOGY: Please see below. 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 In ER pt was seen by vascular surgery team and AV fistula site was sutured after compression did not stop bleeding. Pt was scheduled to have surgery on March 12, 2019 at [facility] for new AV Fistula. Pt was started on iv nitro gtt due to uncontrolled hypertension. Hospitalist team was consulted to admit the pt for further management. Renal dialysis, left arm graft AV fistula complication with bleeding -s/p suturing in ER. s/p debridement 02/26/19 : per vascular, infected -NPO for permacath -vacular consult w Dr. Kerr History of hypertension, uncontrolled uncontrolled hypertension -home meds carvedilol, norvasc -s/p iv nitro gtt for uncontrolled hypertension in view of bleeding from AV fistula site -Consult renal as pt ESRD on HD -isosorbide and clonidine titrated to allow discontinuation of nitro iv gtt. HLD (hyperlipidemia) -home med statin Nicotine dependence - pt was counselled about smoking cessation ESRD (end stage renal disease) -nephrology service for HD CHF (congestive heart failure) -will get medical records from PMD -home meds AAA (abdominal aortic aneurysm) -on surveillance US as outpatient -As per pt his AAA is stable -medical records from PMD DVT prop w HUMBERTO and SCD disposition: transfer to [facility]. PT clearance and await nephrology d/c home recommendations A-FIB/CHADSVASC A-FIB History Current/History of A-Fib/PAF?: No Current Oral Anticoagulant The: No A-FIB/CHADSVASC A-FIB History Current/History of A-Fib/PAF?: No Current Oral Anticoagulant The: No VS, I&O, 24H, Fishbone Vital Signs/I&O Vital Signs Date Time Temp Pulse Resp B/P (MAP) Pulse Ox O2 Delivery O2 Flow Rate FiO2 02/27/19 07:00 108/54 02/27/19 06:00 77 95 02/27/19 05:25 18 02/27/19 04:00 99.3 02/26/19 15:57 10 02/25/19 00:05 Room Air I&O- Last 24 Hours up to 6 AM 02/27/19 06:00 Intake Total 1189.20 ml Output Total 300 ml Balance 889.20 ml Laboratory Data 24H LABS Laboratory Tests 2 02/27/19 04:54: Nucleated Red Blood Cells % (auto) 0.0, Anion Gap 10, Glomerular Filtration Rate 5.0L, Blood Urea Nitrogen 43#H, Creatinine 13.60*H, Sodium Level 136, Potassium Level 4.7, Chloride Level 98, Carbon Dioxide Level 28, Calcium Level 8.5 CBC/BMP Laboratory Tests 02/27/19 04:54 Red Blood Count 3.00 L, Mean Corpuscular Volume 94.0, Mean Corpuscular Hemoglobin 30.0, Mean Corpuscular Hemoglobin Concent 31.9 L, Red Cell Distribution Width 16.0 H, Calcium Level 8.5 BENEDICT WHITAKER MD February 27, 2019 07:45
[2019-02-27] MEDS: CALCIUM CARBONATE 500 MG CHEW U/D PO SCH ×3 (09:34→18:00)
[2019-02-27] MEDS ORDERED: LIDOCAINE 2% MDV 20 ML VIAL As Ordered ONE (11:06)
[2019-02-27] MEDS ORDERED: BUPIVACAINE HCL 0.5% 10 ML VIAL As Ordered ONE (11:06)
[2019-02-27] MEDS ORDERED: HEPARIN 1,000 UNITS/ML 10ML VIAL (FOR RADIOLOGY& DIALYSIS ONLY) As Ordered ONE (11:06)
[2019-02-27] MEDS ORDERED: HEPARIN 1,000 UNITS/ML 10ML VIAL (FOR RADIOLOGY& DIALYSIS ONLY) XX ONE (11:15)
[2019-02-27] MEDS ORDERED: MIDAZOLAM INJ 2 MG/2 ML VIAL (J2250) As Ordered ONE (11:24)
[2019-02-27] MEDS ORDERED: fentaNYL 100 MCG/2 ML INJECTION (J3010) As Ordered ONE (11:24)
[2019-02-27] MEDS ORDERED: IRON SUCROSE 100MG 5ML VIAL (J1756 PER 1MG) IV SCH (12:15)
[2019-02-27] MEDS: ATORVASTATIN 10 MG TAB PO SCH (12:26)
[2019-02-27] MEDS: CARVedilol 12.5 MG TAB PO SCH ×2 (12:26→20:49)
[2019-02-27] MEDS: amLODIPine 10 MG TAB PO SCH (12:27)
[2019-02-27] MEDS: PERCOCET 5MG/325MG TAB PO PRN (13:18)
[2019-02-27] MEDS ORDERED: cloNIDine 0.1 MG TAB PO ONE (14:45)
[2019-02-27] MEDS ORDERED: MORPHINE 4 MG/ML 1ML VIAL/SYRINGE (J2270) IV ONE (14:45)
--- NOTE | 2019-02-27 15:54 | IPN ---
DATE: 02/27/2019 SUBJECTIVE: The patient was seen and examined today morning at the bedside downstairs in the interventional radiology suite. He is afebrile and hemodynamically stable. He got the left upper arm arteriovenous (AV) fistula site surgery done. He got the excision of the fistula because of infection and bleeding and the patient is awaiting placement of the tunneled hemodialysis catheter. His nitroglycerin infusion was weaned off and his blood pressures are stable now. OBJECTIVE: VITAL SIGNS: Temperature is 97.7 degrees Fahrenheit, blood pressure 137/63, pulse is 75, respiratory rate of 16, saturating 95% on room air. INTAKE AND OUTPUT: There is no urine output recorded. Weight in the bed scale is 68 kg. He had 300 mL of blood loss yesterday with surgery as well. PHYSICAL EXAMINATION: GENERAL: The patient is awake, alert, oriented times three, laying in bed, in no apparent distress. HEAD AND NECK: Extraocular muscles intact. Pupils equally round and reactive to light. Mucous membranes are moist. Neck is supple. There is no jugular venous distention (JVD). CARDIOVASCULAR: S1, S2, regular rate. No edema of the bilateral lower extremities. RESPIRATORY: Chest is clear to auscultation bilaterally. Bilateral equal air entry. No rales or rhonchi. ABDOMEN: Soft. Positive bowel sounds. Nontender. No organomegaly. MUSCULOSKELETAL: No clubbing or cyanosis. He has a large dressing on the left upper arm at the previous fistula site. There is no thrill or bruit heard over the dressing. CENTRAL NERVOUS SYSTEM (PLATEN DRIER OPERATOR): No focal deficit. Power is 5/5 in all extremities. LABORATORY REVIEW: CBC showed a WBC 7.3, hemoglobin is 9, platelets are 133. BMP showed sodium 136, potassium 4.7, chloride 98, bicarbonate 28, BUN 43, creatinine 13.6. CURRENT INPATIENT MEDICATIONS: The patient's medications were all reviewed by me. He is currently getting isosorbide dinitrate 20 mg three times a day. He is also on clonidine 0.2 mg by mouth daily. Coreg dose was increased to 37.5 mg by mouth twice a day. No other change in the medications as compared with yesterday. ASSESSMENT AND PLAN: 1. End-stage renal disease, on hemodialysis. The patient's regular dialysis day is today. He is going to get the tunneled hemodialysis catheter and he will be dialyzed after that today in the afternoon. 2. Left upper arm arteriovenous (AV) fistula site bleeding. The patient got the excision and ligation of the fistula yesterday. He is scheduled for a new AV fistula placement in [place], [place] next month when he goes back to his home dialysis center. 3. Hypertension with end-stage renal disease. Blood pressures are better controlled. Continue Coreg 37.5 mg by mouth twice a day, clonidine 0.2 mg by mouth daily, isosorbide 20 mg by mouth three times a day. Avoid the use of hydralazine. 4. Anemia and end-stage renal disease. The patient's hemoglobin is 9. I would give him a dose of Venofer with dialysis because it is after acute blood loss. He does not need Aranesp at this point.
[2019-02-28] MEDS: ACETAMINOPHEN TAB 650MG DOSE (2X325MG) PO PRN (05:26)
[2019-02-28 06:00] VITALS: BP 136/60
[2019-02-28 06:46] LABS: HEMATOCRIT 29.6 % (42.0-52.0); HEMOGLOBIN 9.5 g/dl (13.5-17.5); MEAN CORPUSCULAR HEMOGLOBIN 30.4 pg (27.0-33.0); MEAN CORPUSCULAR HGB CONC 32.1 g/dl (32.0-36.5); MEAN CORPUSCULAR VOLUME 94.9 fl (80.0-96.0); PLATELET COUNT, AUTOMATED 130 10^3/uL (150-450); RED BLOOD COUNT 3.12 10^6/uL (4.30-6.10); WHITE BLOOD COUNT 9.9 10^3/uL (4.0-10.0)
[2019-02-28 07:12] LABS: CALCIUM LEVEL 8.4 MG/DL (8.5-10.1); CREATININE FOR GFR 11.6 MG/DL (0.70-1.30)
[2019-02-28 07:30] VITALS: BP 139/79
[2019-02-28] MEDS: ISOSORBIDE DIN. (ISORDIL) 20 MG TAB PO SCH (07:45)
[2019-02-28] MEDS ORDERED: ISOS20TAB PO (08:09)
[2019-02-28] MEDS ORDERED: AMLO10TA5 PO (08:09)
[2019-02-28] MEDS ORDERED: CARV12.5 PO (08:09)
[2019-02-28] MEDS ORDERED: PERCOCET PO (08:09)
[2019-02-28 08:53] VITALS: BP 139/65
[2019-02-28] MEDS: amLODIPine 10 MG TAB PO SCH (08:53)
[2019-02-28] MEDS: CARVedilol 12.5 MG TAB PO SCH (08:53)
[2019-02-28] MEDS: CALCIUM CARBONATE 500 MG CHEW U/D PO SCH (08:53)
--- NOTE | 2019-02-28 10:30 | DS.PDOC ---
Discharge Summary General Date of Admission Feb 24, 2019 at 22:29 Date of Discharge February 28, 2019 Discharge Summary CONSULTANTS: NEPHROLOGY-DR GARDINER VASCULAR SURGERY-DR ZEPEDA PROCECURES: PERMACATH PLACEMENT EXCISION AND LIGATION OF LEFT UPPER ARM AV FISTULA DISCHARGE DIAGNOSES: Renal dialysis, left arm graft AV fistula complication with bleeding -S/P permacath, excision and ligation of AV fistula uncontrolled hypertension HLD (hyperlipidemia) Nicotine dependence-TOBACCO CESSATION COUNSELLING PROVIDED ESRD (end stage renal disease) on Hemodialysis CHF (congestive heart failure) AAA (abdominal aortic aneurysm) DISCHARGE MEDICATIONS: PLS SEE BELOW HISTORY OF PRESENTING ILLNESS: 53 y AA male with HTN, hypertensive nephropathy, ESRD on HD MWF, CHF- unknown type, nicotine dependence, HLD, AAA is originally from [facility] and was visiting family in [place]; 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 In ER pt was seen by vascular surgery team and AV fistula site was sutured after compression did not stop bleeding. Pt was scheduled to have surgery on March 12, 2019 at [facility] for new AV Fistula. Pt was started on iv nitro gtt due to uncontrolled hypertension. Hospitalist team was consulted to admit the pt for further management. HOSPITAL COURSE: Renal dialysis, left arm graft AV fistula complication with bleeding -s/p suturing in ER. s/p debridement 02/26/19 : per vascular, infected -S/P permacath -vacular consult w Dr. Zepeda History of hypertension, uncontrolled uncontrolled hypertension -home meds carvedilol, norvasc -s/p iv nitro gtt for uncontrolled hypertension in view of bleeding from AV fistula site -Consult renal as pt ESRD on HD -isosorbide and clonidine titrated to allow discontinuation of nitro iv gtt. HLD (hyperlipidemia) -home med statin Nicotine dependence - pt was counselled about smoking cessation ESRD (end stage renal disease) -nephrology service for HD CHF (congestive heart failure) -will get medical records from PMD -home meds AAA (abdominal aortic aneurysm) -on surveillance US as outpatient -As per pt his AAA is stable -medical records from PMD DVT prop w HUMBERTO and SCD DISCHARGE PHYSICAL EXAMINATION VITAL SIGNS: Please see below GENERAL APPEARANCE: Resting in bed HEENT: Normocephalic, PERRLA, Mucous moist CARDIOVASCULAR: S1,S2, pulse present, regularly, regular LUNGS: Equal air entry b/l, no wheezes or crackle ABDOMEN: Soft, BS present, no tenderness, no guarding GENITOURINARY: No Perez EXTREMITIES: B/L no edema, capillary refill present, left arm fistular bandaged and sign of blood SKIN: Warm, No fever LABORATORY DATA, IMAGING STUDIES, MICROBIOLOGY: Please see below. TIME SPENT ON DISCHARGE: 30 MIN Vital Signs/I&Os Vital Signs Date Time Temp Pulse Resp B/P (MAP) Pulse Ox O2 Delivery O2 Flow Rate FiO2 02/28/19 08:53 91 139/65 02/28/19 06:00 99.0 17 96 02/26/19 15:57 10 02/25/19 00:05 Room Air I&O- Last 24 Hours up to 6 AM 02/28/19 05:59 Intake Total 1320 ml Output Total 1500 ml Balance -180 ml Laboratory Data Labs 24H Laboratory Tests 2 02/28/19 06:20: Nucleated Red Blood Cells % (auto) 0.0, Anion Gap 6L, Glomerular Filtration Rate 6.0L, Blood Urea Nitrogen 35H, Creatinine 11.60*H, Sodium Level 132L, Potassium Level 4.0, Chloride Level 95L, Carbon Dioxide Level 31, Calcium Level 8.4L CBC/BMP Laboratory Tests 02/28/19 06:20 Red Blood Count 3.12 L, Mean Corpuscular Volume 94.9, Mean Corpuscular Hemoglobin 30.4, Mean Corpuscular Hemoglobin Concent 32.1, Red Cell Distribution Width 16.0 H, Calcium Level 8.4 L Discharge Medications Scheduled Amlodipine Besylate (Amlodipine Besylate) 10 Mg Tablet, 10 MG PO DAILY Atorvastatin Calcium (Atorvastatin Calcium) 10 Mg Tablet, 10 MG PO 3XW, (Reported) MONDAY, MONDAY, MONDAY Calcium Carbonate (Tums Ultra) 400 Mg Tab.chew, 800 MG PO WM, (Reported) Carvedilol (Carvedilol) 12.5 Mg Tablet, 37.5 MG PO BID Diphenhydramine HCl (Diphenhydramine HCl) 50 Mg/1 Ml Vial, 50 MG IV 3XW, (Reported) MONDAY, MONDAY, MONDAY AT DIALYSIS Isosorbide Dinitrate (Isosorbide Dinitrate) 20 Mg Tablet, 20 MG PO TID@07,12,17 Scheduled PRN Clonidine HCl (Clonidine HCl) 0.2 Mg Tablet, 0.2 MG PO DAILY PRN for HIGH BLOOD PRESSURE, (Reported) SBP OVER 190 Cyclobenzaprine HCl (Cyclobenzaprine HCl) 5 Mg Tablet, 5 MG PO DAILY PRN for CRAMPS, (Reported) Diphenhydramine HCl (Banophen) 25 Mg Tablet, 25 MG PO DAILY PRN for ITCHING, (Reported) Oxycodone/Acetaminophen (Oxycodone-Acetaminophen 5-325) 1 Each Tablet, 1 TAB PO Q4HP PRN for MILD/MODERATE PAIN (PS 1-7) Allergies Coded Allergies: No Known Allergies (Unverified , 02/24/19) BENEDICT WHITAKER MD February 28, 2019 10:30
--- NOTE | 2019-02-28 11:48 | IPN ---
DATE: 02/28/2019 SUBJECTIVE: Patient was seen and examined at the bedside today morning. He is afebrile, hemodynamically stable. He was dialyzed yesterday. 1.5 liters of fluid was removed. His blood pressures are significantly better. Pain in the left upper arm is improving and patient is getting ready to be discharged from the hospital today. OBJECTIVE: VITAL SIGNS: Temperature is 99 degrees Fahrenheit, blood pressure 139/65, pulse is 91, respiratory rate of 17, saturating 96% on room air. INTAKE AND OUTPUT: Ultrafiltration with hemodialysis was 1.5 liters. Weight in the bed scale was 68 kg yesterday. PHYSICAL EXAMINATION: GENERAL: The patient is awake, alert, oriented times three, laying in bed, no apparent distress. HEAD AND NECK EXAM: Extraocular muscles intact. Mucous membranes are moist. Neck is supple. There is no jugular venous distention (JVD). He has a left internal jugular (IJ) tunneled hemodialysis catheter. CARDIOVASCULAR: S1, S2. Regular rate. No edema of the bilateral lower extremities. RESPIRATORY: Chest is clear to auscultation bilaterally. Bilateral equal air entry. No rales or rhonchi. ABDOMEN: Soft. Positive bowel sounds. Nontender. No organomegaly. MUSCULOSKELETAL: No clubbing or cyanosis. He has a dressing on the left upper arm atrioventricular (AV) fistula excision site. CENTRAL NERVOUS SYSTEM (BUSINESS ADMINISTRATION TEACHER): No focal deficit. Power is 5/5 in all extremities. LABORATORY REVIEW: Complete blood count (CBC) showed a WBC of 9.9, hemoglobin 9.5, platelets of 130. Basic metabolic panel (BMP) showed sodium 132, potassium is 4, chloride 95, bicarbonate 31, BUN 35, creatinine is 11.6. CURRENT INPATIENT MEDICATIONS: Patient's medications were all reviewed by me. There is no change in the medications today as compared with yesterday. ASSESSMENT AND PLAN: 1. End-stage renal disease on hemodialysis. Patient's regular dialysis days are Monday, Monday, Monday. He was dialyzed yesterday. Next hemodialysis session will be as outpatient tomorrow morning. 2. Hypertension. Patient's blood pressure was elevated. His antihypertensive regimen has been adjusted. He is currently on Coreg 37.5 mg by mouth twice a day, isosorbide 20 mg by mouth three times a day, amlodipine 10 mg daily and he has as needed clonidine 0.2 mg by mouth as needed for elevated blood pressures more than 160. 3. Anemia in end-stage renal disease. Patient's hemoglobin is 9.5, which is optimal and improving. The rest of the anemia management will be done as outpatient. 4. Status post left upper arm atrioventricular (AV) fistula excision and ligation. Patient is already scheduled to have a new AV graft placed this month at [place], [place] DISPOSITION: It is okay to discharge the patient from a nephrology standpoint. He will be evaluated again at dialysis center tomorrow morning.
--- NOTE | 2019-03-06 12:52 | RO ---
DATE OF PROCEDURE: 02/26/2019 ATTENDING SURGEON: Dr. Alea Kerr MECHANIC INDUSTRIAL TRUCK: None. PREOPERATIVE DIAGNOSES: End-stage renal disease. Aneurysmal left basilic vein transposition arteriovenous fistula. Bleeding left basilic vein transposition arteriovenous fistula. Infected left basilic vein transition arteriovenous fistula. POSTOPERATIVE DIAGNOSES End-stage renal disease. Aneurysmal left basilic vein transposition arteriovenous fistula. Bleeding left basilic vein transposition arteriovenous fistula. Infected left basilic vein transition arteriovenous fistula. PROCEDURE: Revision of left basilic vein transposition arteriovenous fistula with ligation and removal of aneurysmal vein. INDICATION: The patient is a 53-year-old male who presented with bleeding from his AV fistula which was ligated and the patient will now undergo revision of the fistula. Risks, benefits and alternative treatment options were discussed with the patient. ANESTHESIA: Local monitored anesthesia care (MAC). ESTIMATED BLOOD LOSS: 300 mL. IV FLUIDS: 450 mL. HEPARIN: 7000 units, protamine 50 mg. SPECIMEN: Left upper arm basilic vein. COMPLICATIONS: None. DRAINS: None. IMPLANTS: None. PROCEDURE: The patient was taken to the operating room, placed supine and the tourniquet was applied above the level of the fistula and inflated for hemostasis. The area of bleeding was evaluated and noted to be severely necrotic and infected and it did not appear that there was any utility in salvaging the fistula as the patient is scheduled to undergo creation of a new fistula in 2 weeks. The fistula was ligated proximally and distally and the aneurysmal basilic vein was removed. Skin flaps were created with removal of nonviable aneurysmal skin tissue and the wound was closed using #2-0 Vicryl to approximate the deeper layers and raleigh to approximate the skin. Dressings were applied. The patient tolerated the procedure well. All instrument, sponge and needle counts were correct at the end of the case. There were no complications. Dr. Kerr was present for and directed the entire case. The patient was transferred to the recovery room awake, alert, extubated and in stable condition.
--- NOTE | 2019-03-09 08:00 | RO ---
DATE OF PROCEDURE: 02/24/2019 at 2126 hours PREOPERATIVE DIAGNOSES: 1. End-stage renal disease. 2. Bleeding left basilic vein transposition arteriovenous fistula. POSTOPERATIVE DIAGNOSES: 1. End-stage renal disease. 2. Bleeding left basilic vein transposition arteriovenous fistula. PROCEDURE: Suture ligation of venotomy in the left basilic vein transposition arteriovenous fistula. ATTENDING SURGEON: Dr. lAea Kerr at bedside. SHIP BOAT OR BARGE MATE: None. ANESTHESIA: INDICATION: Patient is a 53-year-old male who presented to the emergency room with bleeding from his left basilic vein transposition arteriovenous fistula. DESCRIPTION OF PROCEDURE: A blood pressure cuff was applied above the fistula and inflated to control bleeding. The patient was then prepped and draped in the standard surgical fashion. There was a large defect in an aneurysmal portion of the basilic vein transposition arteriovenous fistula, which was ligated using #0 silk suture in figure-of-8 fashion. The blood pressure cuff was released, and there was no further bleeding. Dressings were applied. Patient tolerated the procedure well. All instrument, sponge, and needle counts were correct at the end of the case. There were no complications. Patient requires admission for formal revision of the left basilic vein transposition arteriovenous fistula. Edited: [facility] 03/22/2019 1200
--- NOTE | 2019-04-04 22:26 | REPIR ---
DATE OF PROCEDURE: 02/27/2019 PREOPERATIVE DIAGNOSIS: End-stage renal disease, dysfunctional left basilic vein transposition, arteriovenous fistula, status post revision of the arteriovenous fistula. POSTOPERATIVE DIAGNOSES: End-stage renal disease, dysfunctional left basilic vein transposition, arteriovenous fistula, status post revision of the arteriovenous fistula. PROCEDURE: Ultrasound-guided right internal jugular vein 23-cm BioFlo DuraMax tunneled central venous catheter placement. Fluoroscopic-guided tunneled central venous catheter placement. SURGEON: Dr. Alea Kerr HOUSE PAINTER HELPER: Windy Johnson and Laya Garibay INDICATION: The patient is a 53-year-old who underwent revision of his fistula and now requires access for hemodialysis. ANESTHESIA: Local with sedation with 2 mg of Versed, 100 mcg of fentanyl and 20 mL of local. FLUOROSCOPY TIME: 2.0 minutes. CONTRAST: None. SEDATION TIME: 11:31 a.m. to 11:53 a.m. COMPLICATIONS: None. DRAINS: None. SPECIMENS: None. IMPLANTS: None. DESCRIPTION OF PROCEDURE: The patient was taken to the angiography suite, placed supine on the angiography table and then prepped and draped in a standard surgical fashion. The left internal jugular vein was cannulated using ultrasound guidance, a 23 cm BioFlo DuraMax catheter was placed under fluoroscopic guidance. Both ports were aspirated and noted to aspirate easily and then flushed with heparinized saline. Dressings were applied. The patient tolerated the procedure well. Catheter was stable for use for hemodialysis access.
== END 2019-02-28 11:40 | disposition home or self-care (01) | DRG 252 ==
LOC: M ED 20:05 → M ED INP 22:29 → M ICU 02-25 00:15 → M MS4PR 02-27 16:10
PROVIDERS: ADMIT Internal Medicine; ATTEND General Practice
PROC: 05B Upper Veins, Excision (ICD-10-PCS; 2019-02-26)
PROC: 05L Upper Veins, Occlusion (ICD-10-PCS; 2019-02-26)
PROC: 05U Upper Veins, Supplement (ICD-10-PCS; principal; 2019-02-26 15:00)
PROC: 05HM33Z Insertion of Infusion Device into Right Internal Jugular Vein, Percutaneous Approach (ICD-10-PCS; 2019-02-27)
DX: T82.838A Hemorrhage due to vascular prosthetic devices, implants and grafts, initial encounter (principal); N18.6 End stage renal disease; I13.2 Hypertensive heart and chronic kidney disease with heart failure and with stage 5 chronic kidney disease, or end stage renal disease; Z99.2 Dependence on renal dialysis; D63.1 Anemia in chronic kidney disease; F17.200 Nicotine dependence, unspecified, uncomplicated; E78.5 Hyperlipidemia, unspecified; I50.9 Heart failure, unspecified; I71.4 Abdominal aortic aneurysm, without rupture; Z79.899 Other long term (current) drug therapy; Y83.1 Surgical operation with implant of artificial internal device as the cause of abnormal reaction of the patient, or of later complication, without mention of misadventure at the time of the procedure

== ENCOUNTER 2019-03-05 22:55 | Emergency (ER) | payer MEDICARE ==
[~2019-03-05] VITALS: Ht 175.3 cm; Wt 64.0 kg
[~2019-03-05 22:55] MED LIST changes: +AMLO10TA5 PO; +ATOR1TAB19 PO; +BANO25TA PO; +CARV12.5 PO; +CARV25TA PO; +CLON0.2T PO; +CYCL5TAB PO; +DIPH50VL IV; +ISOS20TAB PO; +PERCOCET PO; +TUMS1000 PO
[2019-03-05] MEDS ORDERED: AMOX875T2 PO (23:46)
[2019-03-06] MEDS ORDERED: AMPICILLIN SOD/SULBACTAM SOD 3 GM in D5W MINI-BAG PLUS 100 ML IV ONE ×2
[2019-03-06] MEDS ORDERED: IBUPROFEN 800 MG TAB PO ONE
[2019-03-06] MEDS ORDERED: MORPHINE 4 MG/ML 1ML VIAL/SYRINGE (J2270) IV ONE
[2019-03-06 01:20] VITALS: BP 97/59
[2019-03-06] MEDS ORDERED: AMLO10TA5 PO (19:45)
[2019-03-06] MEDS ORDERED: CARV12.5 PO (19:45)
[2019-03-06] MEDS ORDERED: OXYC1TAB23 PO (19:45)
[2019-03-06] MEDS ORDERED: ISOS20TAB PO (19:45)
[2019-03-06] MEDS ORDERED: ACET500T15 PO (19:47)
== END 2019-03-06 01:21 | disposition home or self-care (01) ==
LOC: M ED 22:55
DX: T82.7XXA Infection and inflammatory reaction due to other cardiac and vascular devices, implants and grafts, initial encounter (principal); Y83.8 Other surgical procedures as the cause of abnormal reaction of the patient, or of later complication, without mention of misadventure at the time of the procedure

== ENCOUNTER 2019-03-06 18:34 | Inpatient (IN) | payer MEDICARE ==
[~2019-03-06] VITALS: Ht 175.3 cm; Wt 66.8 kg
[2019-03-06] MEDS: RAMELTEON 8 MG TAB (ROZEREM) PO SCH (01:04)
[~2019-03-06 18:34] MED LIST changes: +AMOX875T2 PO
[2019-03-06] MEDS ORDERED: ISOS20TAB PO (19:45)
[2019-03-06] MEDS ORDERED: CARV12.5 PO (19:45)
[2019-03-06] MEDS ORDERED: AMLO10TA5 PO (19:45)
[2019-03-06] MEDS ORDERED: OXYC1TAB23 PO (19:45)
[2019-03-06] MEDS ORDERED: ACET500T15 PO (19:47)
[2019-03-06 20:03] LABS: HEMATOCRIT 27.8 % (42.0-52.0); HEMOGLOBIN 8.9 g/dl (13.5-17.5); MEAN CORPUSCULAR HEMOGLOBIN 30.1 pg (27.0-33.0); MEAN CORPUSCULAR VOLUME 93.9 fl (80.0-96.0); PLATELET COUNT, AUTOMATED 166 10^3/uL (150-450); RED BLOOD COUNT 2.96 10^6/uL (4.30-6.10); WHITE BLOOD COUNT 21.9 10^3/uL (4.0-10.0)
--- NOTE | 2019-03-06 20:08 | REP ---
HISTORY: Assess for edema. There is cardiomegaly accentuated by technique. The technique utilized in obtaining the radiograph has magnified the cardiac silhouette and accentuated the interstitial markings. There is a double lumen central venous catheter, the tip of which is in the superior vena cava. There is a diffuse increase in the interstitial markings with basilar predominance. The pleural angles are sharp. The osseous structures are within normal limits. The aortic knob is somewhat irregular, but difficult to evaluate on this portable exam. IMPRESSION: 1. Cardiomegaly. 2. Mild interstitial edema. 3. Irregular aortic knob of uncertain etiology. Consider contrast enhanced CT examination of the chest for further evaluation. Electronically Signed by Ethan Doshi DO 03/07/2019 01:33 P
[2019-03-06] MEDS ORDERED: PERCOCET 5MG/325MG TAB PO ONE (20:15)
[2019-03-06 20:28] LABS: CREATININE FOR GFR 12.2 MG/DL (0.70-1.30); GLOMERULAR FILTRATION RATE 5.6 (>56)
[2019-03-06 20:29] LABS: CALCIUM LEVEL 10.8 MG/DL (8.5-10.1); POTASSIUM SERUM 4.2 MEQ/L (3.5-5.1)
[2019-03-06 20:32] LABS: ATYPICAL LYMPH 2 % (0-5); LYMPHOCYTES 3 % (16-52); METAMYELOCYTES 1 % (0-0); MONOCYTES 7 % (0-8); NEUTROPHILS 79 % (35-75)
[2019-03-06 20:33] LABS: PLATELET ESTIMATE NORMAL (NORMAL)
--- NOTE | 2019-03-06 20:41 | ECGEPIP ---
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
[2019-03-06] MEDS ORDERED: cefTRIAXone SOD 2 GM in D5W MINI-BAG PLUS 50 ML IV ONE (21:00)
[2019-03-06] MEDS ORDERED: ACETAMINOPHEN TAB 650MG DOSE (2X325MG) PO PRN (21:15)
[2019-03-06] MEDS ORDERED: MAALOX 30 ML SUSP *UDC PO PRN (21:15)
[2019-03-06] MEDS ORDERED: MOM 30ML SUSPENSION UDC PO PRN (21:15)
--- NOTE | 2019-03-06 21:24 | REPVR ---
EXAM: CT Chest Without Contrast EXAM DATE/TIME: 03/06/2019 8:35 PM CLINICAL HISTORY: 53 years old, male; Abnormal findings; Abnormal radiologic exam of lung or chest; Additional info: Abnormal aortic knob on cxr TECHNIQUE: Imaging protocol: Axial computed tomography images of the chest without intravenous contrast. Coronal and sagittal reformatted images were created and reviewed. 3D rendering: MIP reconstructed images were created and reviewed. Radiation optimization: All CT scans at this facility use at least one of these dose optimization techniques: automated exposure control; mA and/or kV adjustment per patient size (includes targeted exams where dose is matched to clinical indication); or iterative reconstruction. COMPARISON: CR Chest, 1 view 03/06/2019 7:33 PM FINDINGS: Tubes, catheters and devices: Catheter present via left internal jugular approach with the tip in the right atrium. Lungs: Multiple centrilobular fuzzy nodules noted at the lung bases with thickening of the intra-lobular septa. Paraseptal type emphysema noted in the right lower lobe. Patchy area of atelectasis/consolidation in the intersegment of the right upper lobe. 7 mm air-containing cavity/cyst in the right upper lobe. Pleural space: Normal. No pneumothorax. No pleural effusion. Heart: There is coronary artery calcification. There is cardiomegaly. Aorta:There is aneurysmal enlargement of the aortic arch posterior to the left subclavian artery origin measuring 4.6 cm in diameter. The superior border/wall of the area of the aneurysmal enlargement is calcified. On the coronal images there is a suggestion of an area of linear hyperdensity the area of aneurysmal enlargement from the true lumen of the aorta. At the level of the distal descending thoracic aorta a second area of aneurysmal enlargement measuring 5.1 cm with rim like calcification encapsulating a portion of the aorta is noted also with a inner linear area of hyperdensity suggesting 2 lumens of the aorta. This terminates at the origin of the right renal artery. Severe arterial sclerosis noted. Lymph nodes: Unremarkable. No enlarged lymph nodes. Bones/joints: Unremarkable. No acute fracture. Soft tissues: There is a small sliding hernia. Liver: Calcifications noted in the tootie hepatis and within the liver could be vascular in nature. Kidneys and ureters: Both kidneys are atrophic. IMPRESSION: 1. 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 The findings were verbally communicated via telephone conference with YOLANDA TALBERT at 9:23 PM EDT on 03/06/2019. The findings were acknowledged and understood. [place] 2. Atrophic kidneys. 3. Small sliding hiatal hernia. 4. Prominence of centrilobular cord structures and thickening of the intralobular septa at the lung bases suggests pneumonitis. 5. 7 mm cyst in the right upper lobe. Bubbles are slightly thickened. This could represent a chronic bulla/bleb. No fluid to suggest active infection COMMENT: Consistent with the [employer]'s Incidental Findings Committee Report (J Am Alyssa Radiol 2015): Unless the patient has clinical risk factors for thyroid cancer or has suspicious findings characterized in this report, for patients under 35 years old any thyroid nodule less than 1.0 cm, and for patients at least 35 years old any thyroid nodule less than 1.5 cm is highly likely to be benign and does not require follow-up imaging or biopsy. Patients with limited life expectancy and/or comorbidities do not require follow up imaging or biopsy for nodules of any size. Electronically signed by: Vani Hirsch On 03/06/2019 21:24:42 PM
[2019-03-06] MEDS ORDERED: diphenhydrAMINE 50 MG CAP PO ONE (21:30)
[2019-03-06] MEDS ORDERED: diphenhydrAMINE INJ 50MG/ML VIAL (J1200) IV STA (21:51)
[2019-03-06] MEDS ORDERED: PIPERACILLIN/TAZOBACTAM SOD 2.25 GM in D5W MINI-BAG PLUS 50 ML IV ONE (22:00)
[2019-03-06] MEDS ORDERED: MORPHINE 2 MG/ML 1ML SYRINGE (J2270) IV ONE (22:00)
[2019-03-06] MEDS ORDERED: VANCOMYCIN HCL 1,000 MG, VIAL MATE ADAPTER 1 EACH in D5W 250 ML IV ONE (22:00)
--- NOTE | 2019-03-06 23:48 | PHACANCOPD ---
PHARMACY VANCOMYCIN DOSING Pt Demographics Demographics Patient Age:53 , Weight:66.000 , Gender: male Adjusted Body Weight Date: 03/06/19, Adjusted Body Weight: Kg Events Past 24 Hours Events Past 24 Hours: YES: Dialysis Vancomycin Vancomycin Target Ranges: 10-20 mcg/ml Vancomycin Load Y/N: No Load Dose Date Time Vancomycin Load Dose: 1GM x DOSE in ER Date: 03/06/19 Time: 22:00 Vancomycin Dose Date: 03/06/19. Current Vancomycin Dose: Intermittent Dosing?: Yes Labs Labs Laboratory Tests 03/06/19 19:47 Red Blood Count 2.96 L, Mean Corpuscular Volume 93.9, Mean Corpuscular Hemoglobin 30.1, Mean Corpuscular Hemoglobin Concent 32.0, Red Cell Distribution Width 16.0 H, Monocytes # (Auto) , Calcium Level 10.8 H Micro Microbiology 03/06/19 Blood Culture, Received Pending 03/06/19 Blood Culture, Received Pending 03/06/19 Wound Culture, Received Pending 03/06/19 Wound Culture, Received Pending Creatinine Clearance Date:03/06/19. Creatinine Clearance: [0]. Assessment and Plan Maintaining Current Dose?: Yes Reason for dose change: No Dose Change Pharmacist Note Pharmacist Note Date: 03/06/19. Pharmacist note: VANCO 1GM IV x1 in ER @ 22:00 SCR 12; SENT FROM HD TODAY CONTINUE WITH VANCO 1GM IV @ [facility] March 06, 2019 23:48
[2019-03-06 23:50] VITALS: BP 128/68
[2019-03-07] MEDS: PERCOCET 5MG/325MG TAB PO PRN (01:02)
[2019-03-07] MEDS ORDERED: TAZOBACTAM SOD IV SCH (01:15)
[2019-03-07] MEDS ORDERED: D5W IV SCH (01:15)
[2019-03-07] MEDS ORDERED: PIPERACILLIN IV SCH (01:15)
[2019-03-07] MEDS ORDERED: CYCLOBENZAPRINE 5MG TABLET PO PRN (01:30)
[2019-03-07] MEDS: CARVedilol 12.5 MG TAB PO SCH ×3 (01:37→21:11)
[2019-03-07] MEDS: ISOSORBIDE DIN. (ISORDIL) 20 MG TAB PO SCH ×4 (01:38→21:00)
--- NOTE | 2019-03-07 02:05 | HPEPDOC ---
General Date of Admission March 06, 2019 at 21:14 Chief Complaint The patient is a 53-year-old male admitted with a reason for visit of Dialysis A v Fistula Infection. Source: Patient, RN/, Old records History of Present Illness Mr. Smith is a 53 years old man with ESRD on HD who was recently admitted for infected left arm fistula, which was revised, pt treated with antibiotic, a Perm Cath was placed, and pt discharged on 02/28. Pt is sent to Er now due to oozing from fistula and Perm Cath sites. I saw that dirty, thin drainage was oozing from the previous fistula site on the left arm. Perm cath insertion site looked fine at the time. Pt complains of generalized weakness and pain. He has chills, but no fever. In the ER, pt had normal vitals, but a WBC count of 21.9K. Nephrology and vascular surgery were consulted from ER, and recommended admission. Serum Cr 12.2. Outpatient scheduled HD was cancelled today due to infection concern. Home Medications Scheduled Amlodipine Besylate (Amlodipine Besylate) 10 Mg Tablet, 10 MG PO DAILY, (Reported) Amoxicillin/Potassium Clav (Amox-Clav 875-125 mg Tablet) 1 Each Tablet, 1 TAB PO BID, (Reported) STARTED 03/05/19 TO TAKE X 10 DAYS. TOOK ONE DOSE ON 03/05/19 AND ONE DOSE ON 03/06/19. Atorvastatin Calcium (Atorvastatin Calcium) 10 Mg Tablet, 10 MG PO 3XW, (Reported) MONDAY, MONDAY, MONDAY AT DIALYSIS Calcium Carbonate (Tums Ultra) 400 Mg Tab.chew, 800 MG PO WM, (Reported) Carvedilol (Carvedilol) 12.5 Mg Tablet, 37.5 MG PO BID, (Reported) Diphenhydramine HCl (Diphenhydramine HCl) 50 Mg/1 Ml Vial, 50 MG IV 3XW, (Report ed) MONDAY, MONDAY, MONDAY AT DIALYSIS Isosorbide Dinitrate (Isosorbide Dinitrate) 20 Mg Tablet, 20 MG PO TID, (Reported) Scheduled PRN Acetaminophen (Acetaminophen) 500 Mg Tablet, 1,000 MG PO DAILY PRN for PAIN, (Reported) Clonidine HCl (Clonidine HCl) 0.2 Mg Tablet, 0.2 MG PO DAILY PRN for HIGH BLOOD PRESSURE, (Reported) SBP OVER 190 Cyclobenzaprine HCl (Cyclobenzaprine HCl) 5 Mg Tablet, 5 MG PO DAILY PRN for CRAMPS, (Reported) Diphenhydramine HCl (Banophen) 25 Mg Tablet, 25 MG PO DAILY PRN for ITCHING, (Reported) Oxycodone HCl/Acetaminophen (Oxycodone-Acetaminophen 5-325) 1 Each Tablet, 1 TAB PO Q4H PRN for PAIN, (Reported) Allergies Coded Allergies: No Known Allergies (Unverified , 03/05/19) Past Medical History Medical History HTN, hypertensive nephropathy, ESRD on HD MWF, CHF- unknown type, nicotine dependence, HLD, Thoracic AA Surgical History AV fistula revision, Perm cath placement Family History Significant Family History: No pertinent family hx Social History * Smoker: current smoker Alcohol: Denies Drugs: denies A-FIB/CHADSVASC A-FIB History Current/History of A-Fib/PAF?: No Review of Systems Constitutional: Reports: Chills Eyes: Denies: Pain ENT: Denies: Head Aches Skin: Denies: Rash Pulmonary: Denies: Dyspnea, Cough Cardiovascular: Denies: Chest Pain, Edema Gastrointestinal: Denies: Nausea, Vomiting, Abdominal Pain Genitourinary: Denies: Dysuria Musculoskeletal: Reports: Other Symptoms (whole bodyache) Neurological: Reports: Weakness (generalized) Psych: Reports: Mood Normal, Anxiety Physical Examination General Exam: Positive: Alert, Cooperative, No Acute Distress Eye Exam: Positive: PERRLA ENT Exam: Positive: Atraumatic Neck Exam: Positive: Supple; Negative: JVD Chest Exam: Positive: Clear to auscultation, Normal air movement Heart Exam: Positive: Rate Normal, Regular Rhythm Abdomen Exam: Positive: Normal bowel sounds, BS Hypoactive, Soft; Negative: Tenderness Extremity Exam: Negative: Edema Skin Exam: Positive: Other skin issue (ozzing from previous left arm fistula site- dirty, think drainage); Negative: Rash Neuro Exam: Positive: Normal Speech Vital Signs Vital Signs Date Time Temp Pulse Resp B/P (MAP) Pulse Ox O2 Delivery O2 Flow Rate FiO2 03/07/19 01:02 20 03/06/19 23:50 96.9 78 128/68 (88) 94 03/06/19 22:47 Room Air Laboratory Data Labs 24H Laboratory Tests 2 03/06/19 19:47: White Blood Count 21.9H, Red Blood Count 2.96L, Hemoglobin 8.9L, Hematocrit 27. 8L, Mean Corpuscular Volume 93.9, Mean Corpuscular Hemoglobin 30.1, Mean Corpuscular Hemoglobin Concent 32.0, Red Cell Distribution Width 16.0H, Platelet Count 166, Monocytes # (Auto) , Nucleated Red Blood Cells % (auto) 0.1H, Neutrophils 79H, Band Neutrophils 8, Lymphocytes (Manual) 3L, Monocytes (Manual) 7, Metamyelocytes 1H, Atypical Lymphocytes 2, Platelet Estimate NORMAL, Red Blood Cell Morphology NORMAL, Anion Gap 15, Glomerular Filtration Rate 5.6L, Blood Urea Nitrogen 64H, Creatinine 12.20*H, Sodium Level 129L, Potassium Level 4.2, Chloride Level 90L, Carbon Dioxide Level 24, Calcium Level 10.8H CBC/BMP Laboratory Tests 03/06/19 19:47 Red Blood Count 2.96 L, Mean Corpuscular Volume 93.9, Mean Corpuscular Hemoglobin 30.1, Mean Corpuscular Hemoglobin Concent 32.0, Red Cell Distribution Width 16.0 H, Monocytes # (Auto) , Calcium Level 10.8 H Microbiology Microbiology 03/06/19 Blood Culture, Received Pending 03/06/19 Blood Culture, Received Pending 03/06/19 Wound Culture, Received Pending 03/06/19 Wound Culture, Received Pending Assessment/Plan Infection at Left Arm Fistula and Perma Cath Sites, hemodynamically stable - Admit to inpatient - Empiric antibiotics: IV Vanco and Zosyn, renally dosed - f/u c/s - Nephro and Vascular consult ESRD on HD - Missed dialysis today, no signs of volume overload - Nephro consult Plan / VTE VTE Prophylaxis Ordered?: Yes Plan Anticipated Discharge: AVELINO Geiger MD March 07, 2019 02:05
[2019-03-07 06:00] VITALS: BP 128/68
[2019-03-07 06:10] LABS: HEMOGLOBIN 8.5 g/dl (13.5-17.5); MEAN CORPUSCULAR HEMOGLOBIN 29.8 pg (27.0-33.0); MEAN CORPUSCULAR HGB CONC 32.7 g/dl (32.0-36.5); MEAN CORPUSCULAR VOLUME 91.2 fl (80.0-96.0); PLATELET COUNT, AUTOMATED 151 10^3/uL (150-450); RED BLOOD COUNT 2.85 10^6/uL (4.30-6.10); WHITE BLOOD COUNT 20.2 10^3/uL (4.0-10.0)
[2019-03-07 06:43] LABS: ALBUMIN 1.9 GM/DL (3.2-5.2); BILIRUBIN,TOTAL 0.7 MG/DL (0.2-1.0); CALCIUM LEVEL 10.6 MG/DL (8.5-10.1); CREATININE FOR GFR 12.7 MG/DL (0.70-1.30); GLOMERULAR FILTRATION RATE 5.4 (>56); POTASSIUM SERUM 3.9 MEQ/L (3.5-5.1); TOTAL PROTEIN 7.1 GM/DL (6.4-8.2)
[2019-03-07 08:18] LABS: C REACTIVE PROTEIN QUANTITATIV 30.4 MG/DL (0.00-0.30)
[2019-03-07] MEDS: HEPARIN SOD (PORCINE) 5000 UNITS/ML VIAL SC SCH ×3 (09:00→21:11)
[2019-03-07] MEDS: MORPHINE 4 MG/ML 1ML VIAL/SYRINGE (J2270) IV PRN (09:47)
[2019-03-07] MEDS: PIPERACILLIN/TAZOBACTAM SOD 2.25 GM in D5W MINI-BAG PLUS 50 ML IV SCH ×2 (09:48→21:10)
[2019-03-07] MEDS: amLODIPine 10 MG TAB PO SCH (09:53)
[2019-03-07 10:00] VITALS: BP 144/80
--- NOTE | 2019-03-07 10:08 | CR.PDOC ---
General Date of Consultation: March 07, [address] Kerr HPI: 53 y/o M who is originally from [facility] and was visiting family in [place]. Pt has h/o AV fistula aneurysm, was seen in ER on 02/24/2019 for c/o bleeding from AV fistula site over left arm and was discharged home; pt came back to ER for c/o blood oozing out from AV fistula site. The pt was seen by Dr Kerr, vascular surgery with AV fistula site revision 02/26/19. Pt was scheduled to have surgery on March 12, 2019 at [facility] for new AV Fistula creation. The pt was seen in the office 03/05/19 to recheck AVF surgical site LUE. At that time serous yellowish drainage was noted form the surgical site, the pt was started on po Augmentin. The pt returned to the ED 03/06/19 with purulent drainage from Permcath site and drainage from surgical site and the pt was admitted with AVF/Permcath infection. The pt was started on IV Vanco/Zosyn. Vascular surgery is consulted. Denies any fevers, chills, weakness, fatigue, Headache, Chest Pain, Shortness of breath, cough, palpitations, abdominal pain, N/V/D or changes in bowel or bladder habits. Medical History HTN, hypertensive nephropathy, ESRD on HD MWF, CHF- unknown type, nicotine dependence, HLD, Thoracic/Abd AA Surgical History AV fistula over left Arm AVF revision 02/26/19 permacath 02/26/19 SOCHX: Tobacco use: smoker ETOH: occassional Illicit Drugs: h/o cocaine FAMHX: non contributory ROS: As noted in HPI, otherwise 11pt ROS of systems reviewed and unremarkable. PE: GEN: 53yoM, appears stated age. Well-nourished, well developed. No acute distress. HEENT: Normocephalic, atraumatic. Sclera are nonicteric. Conjunctiva without injection. Moist mucous membranes. CHEST: Regular rate and rhythm, +S1, +S2 LUNGS: Clear to auscultation bilaterally. No wheezes, rales, or rhonchi. Breathing appears symmetric and easy. ABD: Round, soft, non-tender, non-distended. +Bowel sounds throughout. No rebound or guarding. EXT: No lower extremity edema appreciated. SKIN: [place], dry, warm. The surgical site LUE has raleigh intact. 4 raleigh removed as per Dr Kerr and purulent material was drained from the distal por tion of the incision. Wound culture x 2 obtained. Permacath site also appears to be draining purulent material. NEURO: Alert and oriented x 3. Cranial nerves III-XII are intact. No focal deficits appreciated. A&P: 53 y/o M who is originally from [facility] and was visiting family in [place]. Pt has h/o AV fistula aneurysm, was seen in ER on 02/24/2019 for c/o bleeding from AV fistula site over left arm and was discharged home; pt came back to ER for c/o blood oozing out from AV fistula site. The pt was seen by Dr Kerr, vascular surgery with AV fistula site revision 02/26/19. Pt was scheduled to have surgery on March 12, 2019 at [facility] for new AV Fistula creation. The pt was seen in the office 03/05/19 to recheck AVF surgical site LUE. At that time serous yellowish drainage was noted form the surgical site, the pt was started on po Augmentin. The pt returned to the ED 03/06/19 with purulent drainage from permcath site and drainage from surgical site and the pt was admitted with AVF/permcath infection. The pt was started on IV Vanco/Zosyn. Vascular surgery is consulted. 1. AVF LUE, h/o AV fistula aneurysm, S/PAVF revision 02/26/19, with permcath insertion, now with purulent drainage/infection of Permcath site and AVF site LUE. Tmax 99.8 since admission. WBC 20.2. Continue IV Vanco/Zosyn. Dr Kerr examined surgical site, there did not appear to be surrounding cellulitis/erythema, purulent material was drained from surgical site , deep wound culture obtained x 2. WC x 2 pending BC x [address] LUE pending. Monitor. 2. Permcath site infection. Plan is for removal of Permcath after HD today, and to replace prior to HD Monday. 3. ESRD. HD as per nephrology. 4. Thoracic/Abd AA. Dr Kerr reviewed imaging, recommend outpt FU with his providers in [place], no acute issues. Thank you for your consultation. We will continue to follow along with you. Vital Signs/I&O Vital Signs Date Time Temp Pulse Resp B/P (MAP) Pulse Ox O2 Delivery O2 Flow Rate FiO2 03/07/19 06:00 98.0 78 18 128/68 (88) 95 03/06/19 22:47 Room Air I&O- Last 24 Hours up to 6 AM 03/07/19 06:00 Intake Total 360 ml Output Total 0 ml Balance 360 ml Laboratory Data Labs 24H Laboratory Tests 2 03/06/19 19:47: White Blood Count 21.9H, Red Blood Count 2.96L, Hemoglobin 8.9L, Hematocrit 27.8L, Mean Corpuscular Volume 93.9, Mean Corpuscular Hemoglobin 30.1, Mean Corpuscular Hemoglobin Concent 32.0, Red Cell Distribution Width 16.0H, Platelet Count 166, Monocytes # (Auto) , Nucleated Red Blood Cells % (auto) 0.1H, Neutrophils 79H, Band Neutrophils 8, Lymphocytes (Manual) 3L, Monocytes (Manual) 7, Metamyelocytes 1H, Atypical Lymphocytes 2, Platelet Estimate NORMAL, Red Blood Cell Morphology NORMAL, Anion Gap 15, Glomerular Filtration Rate 5.6L, Blood Urea Nitrogen 64H, Creatinine 12.20*H, Sodium Level 129L, Potassium Level 4.2, Chloride Level 90L, Carbon Dioxide Level 24, Calcium Level 10.8H 03/07/19 05:29: Nucleated Red Blood Cells % (auto) 0.1H, Anion Gap 9, Glomerular Filtration Rate 5.4L, Blood Urea Nitrogen 72H, Creatinine 12.70*H, Sodium Level 127L, Potassium Level 3.9, Chloride Level 91L, Carbon Dioxide Level 27, Calcium Level 10.6H, Aspartate Amino Transf (AST/SGOT) 31, Alanine Aminotransferase (ALT/SGPT) 46, Alkaline Phosphatase 156H, Total Bilirubin 0.7, Total Protein 7.1, Albumin 1.9L, C-Reactive Protein, Quantitative 30.40H, Albumin/Globulin Ratio 0.37L CBC/BMP Laboratory Tests 03/06/19 19:47 Red Blood Count 2.96 L, Mean Corpuscular Volume 93.9, Mean Corpuscular Hemoglobin 30.1, Mean Corpuscular Hemoglobin Concent 32.0, Red Cell Distribution Width 16.0 H, Monocytes # (Auto) , Calcium Level 10.8 H 03/07/19 05:29 Red Blood Count 2.85 L, Mean Corpuscular Volume 91.2, Mean Corpuscular Hemoglobin 29.8, Mean Corpuscular Hemoglobin Concent 32.7, Red Cell Distribution Width 15.9 H, Calcium Level 10.6 H, Aspartate Amino Transf (AST/SGOT) 31, Alanine Aminotransferase (ALT/SGPT) 46, Alkaline Phosphatase 156 H, Total Bilirubin 0.7, Total Protein 7.1, Albumin 1.9 L Microbiology Microbiology 03/06/19 Blood Culture, Received Pending 03/06/19 Blood Culture, Received Pending 03/06/19 Wound Culture, Received Pending 03/06/19 Wound Culture, Received Pending Allergies Coded Allergies: No Known Allergies (Unverified , 03/05/19) Home Medications Scheduled Amlodipine Besylate (Amlodipine Besylate) 10 Mg Tablet, 10 MG PO DAILY, (Reported) Amoxicillin/Potassium Clav (Amox-Clav 875-125 mg Tablet) 1 Each Tablet, 1 TAB PO BID, (Reported) STARTED 03/05/19 TO TAKE X 10 DAYS. TOOK ONE DOSE ON 03/05/19 AND ONE DOSE ON 03/06/19. Atorvastatin Calcium (Atorvastatin Calcium) 10 Mg Tablet, 10 MG PO 3XW, (Reported) MONDAY, MONDAY, MONDAY AT DIALYSIS Calcium Carbonate (Tums Ultra) 400 Mg Tab.chew, 800 MG PO WM, (Reported) Carvedilol (Carvedilol) 12.5 Mg Tablet, 37.5 MG PO BID, (Reported) Diphenhydramine HCl (Diphenhydramine HCl) 50 Mg/1 Ml Vial, 50 MG IV 3XW, (Reported) MONDAY, MONDAY, MONDAY AT DIALYSIS Isosorbide Dinitrate (Isosorbide Dinitrate) 20 Mg Tablet, 20 MG PO TID, (R eported) Scheduled PRN Acetaminophen (Acetaminophen) 500 Mg Tablet, 1,000 MG PO DAILY PRN for PAIN, (Reported) Clonidine HCl (Clonidine HCl) 0.2 Mg Tablet, 0.2 MG PO DAILY PRN for HIGH BLOOD PRESSURE, (Reported) SBP OVER 190 Cyclobenzaprine HCl (Cyclobenzaprine HCl) 5 Mg Tablet, 5 MG PO DAILY PRN for CRAMPS, (Reported) Diphenhydramine HCl (Banophen) 25 Mg Tablet, 25 MG PO DAILY PRN for ITCHING, (Reported) Oxycodone HCl/Acetaminophen (Oxycodone-Acetaminophen 5-325) 1 Each Tablet, 1 TAB PO Q4H PRN for PAIN, (Reported) Debora Card March 07, 2019 09:07
--- NOTE | 2019-03-07 11:12 | REP ---
CT OF THE UPPER ARM WITHOUT CONTRAST: Rule out abscess at the surgical site. The patient status post left arm fistula repair. CT FINDINGS: Skin raleigh are seen along the anteromedial aspect of the upper arm from the antecubital fossa proximally to nearly the axilla. In the upper arm subcutaneous soft tissues, there is an irregular calcification. This tortuous dilated vascular structure is felt to be consistent with a longstanding vascular dialysis access channel, probably venous. Distal to this, there is some soft tissue gas and fluid. No abscess is seen. There is subcutaneous edema underlying the distal end of the suture line at the antecubital fossa medially. No other fluid collection is seen. No bony erosive change is seen. IMPRESSION: No abscess is visible. Postoperative gas is noted. There is some postoperative edema near the antecubital fossa. A dilated chronically calcified venous channel is noted in the upper arm. Electronically Signed by Yobani Connolly MD 03/07/2019 01:07 P
--- NOTE | 2019-03-07 13:27 | IPNPDOC ---
Text Note Date of Service The patient was seen on 03/07/19. NOTE Subjective: Patient is a 53 year old male with a PMHx of ESRD on HD (MWF), who presented to the ER after he was unable to get HD because of drainage from his PermCath. Patient was recently admitted to [facility] for infected L arm fistula, that was ligated and he had a PermaCath placed with vascular surgery. Upon arrival to the ER patient had drainage from his L arm fistula. Patient was admitted to the hospitalist service. Vascular surgery and Nephrology were called on consultation. Patient was seen and examined at the bedside. Patient reports that they are having a lot of drainage from the Fistula and Catheter. Patient had a bedside drainage performed by vascular surgery. Currently he denies any CP, SOB or palpitations. Denies any N/V, abdominal pain. He does report pain around the Fistula drainage. Objective: Vitals (See below) General: Lying in bed, reporting some pain, awake / alert HEENT: NC, AT CVS: RRR, +S1S2 Chest: Left chest wall PermCath site with drainage noted Lungs: Fair air entry b/l, -w/r/r Abdomen: Soft, ND, NT Extremities: - Edema, - Calf tenderness, Left arm fistula with serosanguineous d rainage Assessment and plan: Infection at Left Arm Fistula and Perma Cath Sites - Clinically reports pain around L arm fistula site after drainage - Patient remains hemodynamically stable - Blood cultures pending; Deep wound cultures pending - Wound cultures (Superficial) 03/06: S. aureus - CT Chest 03/06: 1. 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 The findings were verbally communicated via telephone conference with YOLANDA TALBERT at 9:23 PM EDT on 03/06/2019. The findings were acknowledged and understood. 2. Atrophic kidneys. 3. Small sliding hiatal hernia. 4. Prominence of centrilobular cord structures and thickening of the intralobular septa at the lung bases suggests pneumonitis. 5. 7 mm cyst in the right upper lobe. Bubbles are slightly thickened. This could represent a chronic bulla/bleb. No fluid to suggest active infection - CT L Arm 03/07: No abscess is visible. Postoperative gas is noted. There is some postoperative edema near the antecubital fossa. A dilated chronically calcified venous channel is noted in the upper arm. - c/w Vancomycin and Zosyn (Day #2) - Will c/w pain control with Morphine and Tylenol - Nephrology and Vascular surgery on consult ESRD on HD (MWF) - Patient has missed HD on Monday - Plan for dialysis today and removal of Catheter - Nephrology on consult HTN - c/w Amlodipine, Carvedilol, Isosorbide Dinitrate DLP - c/w Atorvastatin Insomnia - c/w Ramelteon DVT prophylaxis - c/w Heparin VS,Fishbone, I+O VS, Fishbone, I+O Laboratory Tests 03/06/19 19:47 Red Blood Count 2.96 L, Mean Corpuscular Volume 93.9, Mean Corpuscular Hemoglobin 30.1, Mean Corpuscular Hemoglobin Concent 32.0, Red Cell Distribution Width 16.0 H, Monocytes # (Auto) , Calcium Level 10.8 H 03/07/19 05:29 Red Blood Count 2.85 L, Mean Corpuscular Volume 91.2, Mean Corpuscular Hemoglobin 29.8, Mean Corpuscular Hemoglobin Concent 32.7, Red Cell Distribution Width 15.9 H, Calcium Level 10.6 H, Aspartate Amino Transf (AST/SGOT) 31, Alanine Aminotransferase (ALT/SGPT) 46, Alkaline Phosphatase 156 H, Total B ilirubin 0.7, Total Protein 7.1, Albumin 1.9 L Vital Signs Date Time Temp Pulse Resp B/P (MAP) Pulse Ox O2 Delivery O2 Flow Rate FiO2 03/07/19 10:00 98.2 88 22 144/80 (101) 95 03/06/19 22:47 Room Air I&O- Last 24 Hours up to 6 AM 03/07/19 06:00 Intake Total 360 ml Output Total 0 ml Balance 360 ml SHAMIKA BAEZ MD March 07, 2019 13:27
[2019-03-07] MEDS ORDERED: VANCOMYCIN HCL 1,000 MG, VIAL MATE ADAPTER 1 EACH in D5W 250 ML IV SCH (16:00)
[2019-03-07] MEDS: **VANCO AFTER HD** MISC XX SCH (16:00)
[2019-03-07 16:40] VITALS: BP 128/82
[2019-03-07] MEDS: RAMELTEON 8 MG TAB (ROZEREM) PO SCH (21:12)
[2019-03-07 22:00] VITALS: BP 125/57
[2019-03-07 22:18] LABS: IMMUNOGLOBULIN G 1790 MG/DL (681-1648); IMMUNOGLOBULIN M 51.2 MG/DL (40-230)
[2019-03-07] MEDS ORDERED: DARBEPOETIN 100 MCG/0.5 ML *DIALYSIS* SYRINGE (J0882) IV SCH (23:15)
[2019-03-08 02:00] VITALS: BP 104/55
[2019-03-08] MEDS: PERCOCET 5MG/325MG TAB PO PRN (05:11)
[2019-03-08 05:59] LABS: HEMATOCRIT 26.1 % (42.0-52.0); HEMOGLOBIN 8.5 g/dl (13.5-17.5); MEAN CORPUSCULAR HEMOGLOBIN 29.3 pg (27.0-33.0); MEAN CORPUSCULAR HGB CONC 32.6 g/dl (32.0-36.5); PLATELET COUNT, AUTOMATED 198 10^3/uL (150-450)
[2019-03-08 06:00] VITALS: BP 130/87
[2019-03-08] MEDS ORDERED: PERCOCET 5MG/325MG TAB PO ONE (06:15)
[2019-03-08 06:39] LABS: ATYPICAL LYMPH 1 % (0-5); BASOPHILS 1 % (0-4); EOSINOPHILS 1 % (0-5); LYMPHOCYTES 2 % (16-52); MONOCYTES 10 % (0-8); NEUTROPHILS 83 % (35-75); PLATELET ESTIMATE NORMAL (NORMAL)
[2019-03-08 06:40] LABS: ANISOCYTOSIS 1+
[2019-03-08 06:41] LABS: C REACTIVE PROTEIN QUANTITATIV 24.8 MG/DL (0.00-0.30); CALCIUM LEVEL 10.2 MG/DL (8.5-10.1); CREATININE FOR GFR 7.74 MG/DL (0.70-1.30); GLOMERULAR FILTRATION RATE 9.5 (>56); HYPOCHROMASIA 2+; MAGNESIUM LEVEL 2.3 MG/DL (1.8-2.4); PERCENT SATURATION 22.5 % (19.7-50.0); POLYCHROMASIA 1+; POTASSIUM SERUM 4.5 MEQ/L (3.5-5.1)
[2019-03-08] MEDS: MORPHINE 4 MG/ML 1ML VIAL/SYRINGE (J2270) IV PRN ×2 (08:40→21:21)
[2019-03-08] MEDS: PIPERACILLIN/TAZOBACTAM SOD 2.25 GM in D5W MINI-BAG PLUS 50 ML IV SCH ×2 (08:43→21:20)
[2019-03-08] MEDS: amLODIPine 10 MG TAB PO SCH (08:44)
[2019-03-08] MEDS: ISOSORBIDE DIN. (ISORDIL) 20 MG TAB PO SCH ×3 (08:44→21:00)
[2019-03-08] MEDS: CARVedilol 12.5 MG TAB PO SCH ×2 (08:45→21:20)
[2019-03-08] MEDS: HEPARIN SOD (PORCINE) 5000 UNITS/ML VIAL SC SCH ×2 (08:45→21:18)
--- NOTE | 2019-03-08 09:08 | CR ---
DATE OF CONSULTATION: 03/07/2019 REQUESTING PHYSICIAN: Dr. Nolberto Hung REASON FOR CONSULTATION: Management of end stage renal disease on hemodialysis in this patient admitted with infection of his AV fistula site and his PermaCath site. HISTORY OF PRESENT ILLNESS: Sunny Smith is a 53-year-old male with a past medical history of end stage renal disease on hemodialysis on a Monday, Monday, Monday schedule. The patient resides in [place], however, is visiting family in the [place] area and is a transient hemodialysis patient in the [facility] here in [place]. He has a past medical history of end stage renal disease on hemodialysis, hypertension, secondary hyperparathyroidism, anemia of chronic renal failure, dyslipidemia, thoracic and abdominal aortic aneurysm. The patient had AV fistula revision on 02/26/2019 after bleeding was noted from the fistula site. He was seen for followup in the vascular surgery office on 03/05/2019 and noted to have some serous yellowish drainage from the surgical site. He was started on oral Augmentin. The patient was then seen in the outpatient hemodialysis unit on 03/06/2019 where he was noted to have a significant purulent drainage from the fistula revision site and also thick purulent drainage from the PermaCath site. His outpatient hemodialysis was canceled and the patient was directed to come to the emergency room for further evaluation and treatment. The patient complains of weakness, fevers and chills at home and feeling lethargic. In the emergency room, the patient was noted to have significant leukocytosis. He was started on broad spectrum antimicrobials. He will be dialyzed this afternoon with plan for PermaCath removal post dialysis and PermaCath holiday while he continues on broad spectrum antibiotics. The patient also had drainage of pus from the fistula site and wound cultures and blood cultures were sent. PAST MEDICAL HISTORY: As mentioned above. PAST SURGICAL HISTORY: AV fistula left arm status post recent revision and status post PermaCath. SOCIAL HISTORY: He is a smoker. He reports occasional alcohol use and there is history of cocaine use in the past. FAMILY HISTORY: Patient denies any family history of renal failure. REVIEW OF SYSTEMS: Constitutional: He reports some subjective fevers and chills and generalized fatigue and malaise. Eyes: He denies visual changes or tearing. ENT: He denies rhinorrhea or epistaxis. Cardiac: He denies chest pain or palpitations. Respiratory: He denies shortness of breath or cough. GI: He reports no nausea, vomiting, or diarrhea. Endocrine: He reports secondary hyperparathyroidism. He denies diabetes. Hematologic: He denies anticoagulant use. He reports chronic anemia. Neurologic: He denies any seizure or syncope. Remainder of review of systems is as per history of present illness and otherwise 11 point review of systems is reviewed and negative. PHYSICAL EXAMINATION: Temperature 97.7, pulse 84, respiratory rate 20, blood pressure 128/82, saturating 96% on room air. Intake yesterday was not fully recorded. Dialysis today only removed 500 mL. General: Patient is seen at the bedside and then later in the hemodialysis unit. Middle aged male who appears stated age in no acute distress. However, I did see him after he received some morphine and he is a little slow to respond. Sclerae are anicteric. Tongue is moist. Jugular veins are not elevated. There is a tunneled hemodialysis catheter in the right chest wall with a soiled appearing dressing. Lungs show symmetric air entry with fair air movement. No crackle or rale. Abdomen is soft and nontender. There are bowel sounds. The lower extremities are negative for edema. The left fistula site has raleigh and has drainage and swelling. Neurologic: He is oriented times three, interactive and conversational. Skin: Normal temperature and turgor. LABS: Sodium 127, potassium 3.9, bicarbonate 27, glucose 98, CRP 30, hemoglobin 8.5, white count 20.2. CT of chest with aneurysm of the aortic arch, descending thoracic aorta and proximal abdominal aorta with findings indicative of chronic aortic dissection, 7 mm cyst in the right upper lobe possibly representing a chronic bulla or bleb. CT of the left upper arm with no abscess visible. There is subcutaneous edema. INPATIENT MEDICATIONS: The patient is on Zosyn 2.25 grams IV every 12 hours, vancomycin with dialysis, amlodipine 10 mg by mouth daily, atorvastatin 10 mg by mouth Monday, Monday, Monday, carvedilol 37.5 mg by mouth twice a day, heparin 5000 units subcutaneous every 12 hours, isosorbide 20 mg by mouth three times a day, Percocet as needed, and Rozerem 8 mg by mouth at bedtime. PROBLEMS: 1. End stage renal disease on hemodialysis on a Monday, Monday, Monday schedule. The patient outpatient hemodialysis on Monday was canceled due to thick purulent drainage from the PermaCath. He was also noted to have a purulent drainage from his fistula revision site. He was sent to the emergency room for further evaluation and for initiation of broad spectrum antibiotics. He is dialyzed today with minimal fluid removal. His PermaCath is to be pulled post dialysis and he will continue on a PermaCath holiday while receiving broad spectrum antimicrobials. Plan is for PermaCath reinsertion over the weekend. 2. Infected fistula revision site and infected PermaCath status post blood and wound cultures, elevated CRP, leukocytosis. Continues on empiric vancomycin and Zosyn pending culture results. PermaCath is removed after dialysis today and will be reinserted likely over the weekend. He had purulent material drained from the fistula revision site. Vascular surgery is following. CT of the arm is noted. 3. Hypertension. Blood pressures are presently acceptable. However, as he is admitted with vascular infection, including of both the PermaCath and the fistula, I am writing very generous holding parameters with his antihypertensives and he had minimal fluid removal with hemodialysis today. 4. Hyponatremia. It is secondary to renal failure and missed hemodialysis treatment and will improve with dialysis. 5. Anemia related to chronic renal failure. We will check iron studies. We will continue with anemia protocol of end stage renal disease.
--- NOTE | 2019-03-08 09:39 | IPNPDOC ---
Date Seen The patient was seen on 03/08/19. Progress Note Vascular Surgery Dr. Kerr HPI: 53 y/o M who is originally from [facility] and was visiting family in [place]. Pt has h/o AV fistula aneurysm, was seen in ER on 02/24/2019 for c/o bleeding from AV fistula site over left arm and was discharged home; pt came back to ER for c/o blood oozing out from AV fistula site. The pt was seen by Dr Kerr, vascular surgery with AV fistula site revision 02/26/19. Pt was scheduled to have surgery on March 12, [address] [facility] for new AV Fistula creation. The pt was seen in the office 03/05/19 to recheck AVF surgical site LUE. At that time serous yellowish drainage was noted form the surgical site, the pt was started on po Augmentin. The pt returned to the ED 03/06/19 with purulent drainage from permcath site and drainage from surgical site and the pt was admitted with AVF/permcath infection. The pt was started on IV Vanco/Zosyn. Vascular surgery is consulted. Denies any fevers, chills, weakness, fatigue, Headache, Chest Pain, Shortness of breath, cough, palpitations, abdominal pain, N/V/D or changes in bowel or bladder habits. Medical History HTN, hypertensive nephropathy, ESRD on HD MWF, CHF- unknown type, nicotine dependence, HLD, Thoracic/Abd AA Surgical History AV fistula over left Arm AVF revision 02/26/19 Permcath 02/26/19 PE: GEN: 53yoM, appears stated age. Well-nourished, well developed. No acute dis tress. HEENT: Normocephalic, atraumatic. Moist mucous membranes. CHEST: Regular rate and rhythm, +S1, +S2 LUNGS: Clear to auscultation bilaterally. No wheezes, rales, or rhonchi. ABD: Round, soft, non-tender, non-distended. EXT: No lower extremity edema appreciated. SKIN: [place], dry, warm. The surgical site LUE has raleigh intact. 4 raleigh removed as per Dr Kerr 03/07. Wound continues to have yellowish-white drainage. No increased erythema, edema. Clean dressing applied. Permcath removed 03/07/19 after HD, site continues to have bloody drainage. NEURO: Alert and oriented x 3. No focal deficits appreciated. WC cath site 03/06/19 ROUTINE CULTURE RESULTS WOUND CULTURE Final Organism 1 STAPHYLOCOCCUS AUREUS QUANTITY OF GROWTH HEAVY WC Left arm 03/06/19 WOUND CULTURE Final Organism 1 STAPHYLOCOCCUS AUREUS QUANTITY OF GROWTH HEAVY Deep wound culture 03/07 x 2 Prelim Staph aureus BC x [address] LUE No abscess is visible. Postoperative gas is noted. There is some postoperative edema near the antecubital fossa. A dilated chronically calcified venous channel is noted in the upper arm. Electronically Signed by Yobani Connolly MD 03/07/2019 01:07 P A&P: 53 y/o M who is originally from [facility] and was visiting family in [place]. Pt has h/o AV fistula aneurysm, was seen in ER on 02/24/2019 for c/o bleeding from AV fistula site over left arm and was discharged home; pt came back to ER for c/o blood oozing out from AV fistula site. The pt was seen by Dr Kerr, vascular surgery with AV fistula site revision 02/26/19. Pt was scheduled to have surgery on March 12, [address] [facility] for new AV Fistula creation. The pt was seen in the office 03/05/19 to recheck AVF surgical site LUE. At that time serous yellowish drainage was noted form the surgical site, the pt was started on po Augmentin. The pt returned to the ED 03/06/19 with purulent drainage from permacath site and drainage from surgical site and the pt was admitted with AVF/permcath infection. The pt was started on IV Vanco/Zosyn. Vascular surgery is consulted. 1. AVF LUE, h/o AV fistula aneurysm, S/PAVF revision 02/26/19, with permcath ins ertion, now with purulent drainage/infection of Permcath site and AVF site LUE. WC with MSSA. Afebrile WBC 24.0. CRP 24.8 Continue IV Vanco/Zosyn. Dr Kerr examined surgical site, there did not appear to be surrounding cellulitis/erythema, purulent material was drained from surgical site. BC x [address] LUE noted. Monitor. 2. Permcath site infection. S/P removal of Permcath 03/07/19 after HD, and plan is to replace over weekend. Continue with IV antibiotics. 3. ESRD. HD as per nephrology. 4. Thoracic/Abd AA. Dr Kerr reviewed imaging, recommend outpt FU with his providers in [place], no acute issues. A-FIB/CHADSVASC A-FIB History Current/History of A-Fib/PAF?: No VS, I&O, 24H, Fishbone Vital Signs/I&O Vital Signs Date Time Temp Pulse Resp B/P (MAP) Pulse Ox O2 Delivery O2 Flow Rate FiO2 03/08/19 08:50 16 03/08/19 08:45 68 109/70 03/08/19 07:31 96 03/08/19 06:00 97.5 03/06/19 22:47 Room Air I&O- Last 24 Hours up to 6 AM 03/08/19 06:00 Intake Total 540 ml Output Total 500 ml Balance 40 ml Laboratory Data 24H LABS Laboratory Tests 2 03/07/19 21:29: Immunoglobulin A 318.0, Immunoglobulin G 1790H, Immunoglobulin M 51.2, Immunog lobulin E 143.0H 03/08/19 05:28: Immature Granulocyte % (Auto) , White Blood Count 24.0H, Red Blood Count 2.90L, Hemoglobin 8.5L, Hematocrit 26.1L, Mean Corpuscular Volume 90.0, Mean Corpuscular Hemoglobin 29.3, Mean Corpuscular Hemoglobin Concent 32.6, Red Cell Distribution Width 16.3H, Platelet Count 198, Monocytes # (Auto) , Nucleated Red Blood Cells % (auto) 0.2H, Neutrophils 83H, Band Neutrophils 2, Lymphocytes (Manual) 2L, Monocytes (Manual) 10H, Eosinophils (Manual) 1, Basophils (Manual) 1, Atypical Lymphocytes 1, Platelet Estimate NORMAL, Polychromasia 1+, Hypochro masia 2+, Basophilic Stippling 1+, Anisocytosis 1+, Anion Gap 7L, Glomerular Filtration Rate 9.5L, Blood Urea Nitrogen 39H, Creatinine 7.74H, Sodium Level 133L, Potassium Level 4.5, Chloride Level 100, Carbon Dioxide Level 26, Calcium Level 10.2H, Magnesium Level 2.3, Iron Level 25L, Total Iron Binding Capacity 111L, Transferrin % Saturation 22.5, Ferritin 4921H, C-Reactive Protein, Quantitative 24.80H CBC/BMP Laboratory Tests 03/08/19 05:28 Red Blood Count 2.90 L, Mean Corpuscular Volume 90.0, Mean Corpuscular Hemoglobin 29.3, Mean Corpuscular Hemoglobin Concent 32.6, Red Cell Distribution Width 16.3 H, Monocytes # (Auto) , Calcium Level 10.2 H Microbiology Microbiology 03/06/19 Blood Culture - Preliminary, Resulted No growth after 24 hours . All specim... 03/06/19 Blood Culture - Preliminary, Resulted No growth after 24 hours . All specim... 03/07/19 Gram Stain - Final, Resulted 03/07/19 Wound Culture - Preliminary, Resulted Staphylococcus Aureus 03/07/19 Gram Stain - Final, Resulted 03/07/19 Wound Culture - Preliminary, Resulted Staphylococcus Aureus 03/06/19 Wound Culture - Final, Complete Staphylococcus Aureus 03/06/19 Wound Culture - Final, Complete Staphylococcus Aureus Debora Card March 08, 2019 09:39
[2019-03-08 09:56] LABS: HEPATITIS B SURFACE ANTIGEN NEGATIVE (NEGATIVE)
[2019-03-08 10:00] VITALS: BP 104/56
[2019-03-08 10:20] LABS: HEPATITIS B CORE ANTIBODY IGM NEGATIVE (NEGATIVE); HEPATITIS C VIRUS ABY INDEX 0.1 INDEX (<0.8)
[2019-03-08 10:21] LABS: HIV 1&2 SCREEN CENTAUR NEGATIVE (NEGATIVE)
[2019-03-08 10:22] LABS: HEPATITIS A ANTIBODY IGM NEGATIVE (NEGATIVE)
--- NOTE | 2019-03-08 12:25 | IPNPDOC ---
Text Note Date of Service The patient was seen on 03/08/19. NOTE Subjective: Patient is a 53 year old male with a PMHx of ESRD on HD (MWF), who presented to the ER after he was unable to get HD because of drainage from his PermCath. Patient was recently admitted to [facility] for infected L arm fistula, that was ligated and he had a PermaCath placed with vascular surgery. Upon arrival to the ER patient had drainage from his L arm fistula. Patient was admitted to the hospitalist service. Vascular surgery and Nephrology were called on consultation. Patient was seen and examined at the bedside. . Currently, patient reports that he still having diffuse body pains, however, appears to be sitting comfortably. Patient continues to have dressing changes daily of his left fistula site. Denies chest pain, shortness of breath or palpitations. Denies any nausea, vomiting. Denies any leg swelling. Objective: Vitals (See below) General: Lying in bed, reporting some pain, awake / alert and oriented x 3 HEENT: NC, AT CVS: RRR, +S1S2 Chest: s/p permacath, Lungs: Fair air entry b/l, no auscultated evidence of rhonchi, rales or wheezing Abdomen: Abdomen remains soft without distention or tenderness Extremities: - Edema, - Calf tenderness, Left arm in dressing Assessment and plan: Infection at Left Arm Fistula and Perma Cath Sites - Clinically reports pain around L arm fistula site after drainage - Patient remains hemodynamically stable - Blood cultures pending; Deep wound cultures pending - Wound cultures (Superficial) 03/06: S. aureus - CT Chest 03/06: 1. 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 The findings were verbally communicated via telephone conference with YOLANDA TALBERT at 9:23 PM EDT on 03/06/2019. The findings were acknowledged and understood. 2. Atrophic kidneys. 3. Small sliding hiatal hernia. 4. Prominence of centrilobular cord structures and thickening of the intralobular septa at the lung bases suggests pneumonitis. 5. 7 mm cyst in the right upper lobe. Bubbles are slightly thickened. This could represent a chronic bulla/bleb. No fluid to suggest active infection - CT L Arm 03/07: No abscess is visible. Postoperative gas is noted. There is some postoperative edema near the antecubital fossa. A dilated chronically calcified venous channel is noted in the upper arm. - c/w Vancomycin and Zosyn (Day #3) - c/w Pain control with Morphine and Tylenol - Nephrology and Vascular surgery on consult - patient has had his permacath removed on 03/07; plan for reinsertion on 03/09 ESRD on HD (MWF) - Patient has missed HD on Monday - Has received Dialysis on 03/07 - after he was unable to complete session on 03/06 - Nephrology on consult HTN - c/w Amlodipine, Carvedilol, Isosorbide Dinitrate DLP - c/w Atorvastatin Insomnia - c/w Ramelteon DVT prophylaxis - c/w Heparin Disposition: - New PermaCath - Awaiting cultures VS,Fishbone, I+O VS, Fishbone, I+O Laboratory Tests 03/08/19 05:28 Red Blood Count 2.90 L, Mean Corpuscular Volume 90.0, Mean Corpuscular Hemoglobin 29.3, Mean Corpuscular Hemoglobin Concent 32.6, Red Cell Distribution Width 16.3 H, Monocytes # (Auto) , Calcium Level 10.2 H Vital Signs Date Time Temp Pulse Resp B/P (MAP) Pulse Ox O2 Delivery O2 Flow Rate FiO2 03/08/19 10:00 97.6 71 17 104/56 (72) 95 03/06/19 22:47 Room Air I&O- Last 24 Hours up to 6 AM 03/08/19 06:00 Intake Total 540 ml Output Total 500 ml Balance 40 ml SHAMIKA BAEZ MD March 08, 2019 12:25
[2019-03-08 14:00] VITALS: BP 118/58
[2019-03-08] MEDS: **VANCO AFTER HD** MISC XX SCH (16:00)
[2019-03-08] MEDS: RAMELTEON 8 MG TAB (ROZEREM) PO SCH (21:18)
[2019-03-08] MEDS: ATORVASTATIN 10 MG TAB PO SCH (21:18)
[2019-03-08 22:00] VITALS: BP 137/75
[2019-03-09] VITALS (7 sets, daily range): BP systolic 117–175; BP diastolic 71–91
[2019-03-09] MEDS: MORPHINE 4 MG/ML 1ML VIAL/SYRINGE (J2270) IV PRN ×2 (01:29→10:12)
[2019-03-09 06:01] LABS: HEMATOCRIT 24.8 % (42.0-52.0); HEMOGLOBIN 8.3 g/dl (13.5-17.5); MEAN CORPUSCULAR HEMOGLOBIN 29.6 pg (27.0-33.0); MEAN CORPUSCULAR HGB CONC 33.5 g/dl (32.0-36.5); MEAN CORPUSCULAR VOLUME 88.6 fl (80.0-96.0); PLATELET COUNT, AUTOMATED 222 10^3/uL (150-450); WHITE BLOOD COUNT 23.1 10^3/uL (4.0-10.0)
[2019-03-09] MEDS: HEPARIN SOD (PORCINE) 5000 UNITS/ML VIAL SC SCH ×2 (06:40→21:48)
[2019-03-09] MEDS: PIPERACILLIN/TAZOBACTAM SOD 2.25 GM in D5W MINI-BAG PLUS 50 ML IV SCH ×2 (06:41→21:48)
[2019-03-09 06:43] LABS: ANISOCYTOSIS 1+; EOSINOPHILS 2 % (0-5); LYMPHOCYTES 6 % (16-52); METAMYELOCYTES 1 % (0-0); MONOCYTES 6 % (0-8); MYELOCYTES 1 % (0-0); NEUTROPHILS 83 % (35-75); PLATELET ESTIMATE NORMAL (NORMAL)
[2019-03-09 06:45] LABS: POLYCHROMASIA 1+
[2019-03-09 06:59] LABS: C REACTIVE PROTEIN QUANTITATIV 19.3 MG/DL (0.00-0.30); CALCIUM LEVEL 10.5 MG/DL (8.5-10.1); CREATININE FOR GFR 10.4 MG/DL (0.70-1.30); GLOMERULAR FILTRATION RATE 6.8 (>56); MAGNESIUM LEVEL 2.6 MG/DL (1.8-2.4); POTASSIUM SERUM 4.2 MEQ/L (3.5-5.1); VANCOMYCIN RANDOM 25.3 UG/ML
[2019-03-09] MEDS ORDERED: BUPIVACAINE HCL 0.5% 30 ML VIAL As Ordered ONE (08:03)
[2019-03-09] MEDS ORDERED: LIDOCAINE 1% SDV INJ 30 ML VIAL As Ordered ONE (08:03)
[2019-03-09] MEDS ORDERED: HEPARIN SOD (PORCINE) 5000 UNITS/ML VIAL As Ordered ONE ×2 (08:03→08:55)
--- NOTE | 2019-03-09 09:26 | REP ---
Chest x-ray: Limited study two views. History: Dialysis Perma-Cath. 1 second of fluoroscopy time is reported. Findings: A single last image hold fluoroscopically obtained spot radiographs of the right chest documents right-sided tunnel catheter placement. Electronically Signed by Yobani Connolly MD 03/09/2019 09:17 A
[2019-03-09] MEDS: ISOSORBIDE DIN. (ISORDIL) 20 MG TAB PO SCH ×3 (09:28→21:47)
[2019-03-09] MEDS: CARVedilol 12.5 MG TAB PO SCH ×2 (09:28→21:47)
[2019-03-09] MEDS ORDERED: VANCOMYCIN HCL 750 MG, VIAL MATE ADAPTER 1 EACH in D5W 250 ML IV SCH ×2 (10:00→16:00)
[2019-03-09] MEDS ORDERED: HEPARIN 1,000 UNITS/ML 10ML VIAL (FOR RADIOLOGY& DIALYSIS ONLY) IV ONE (11:00)
--- NOTE | 2019-03-09 12:25 | IPNPDOC ---
Text Note Date of Service The patient was seen on 03/09/19. NOTE Subjective: Patient is a 53 year old male with a PMHx of ESRD on HD (MWF), who presented to the ER after he was unable to get HD because of drainage from his PermCath. Patient was recently admitted to [facility] for infected L arm fistula, that was ligated and he had a PermaCath placed with vascular surgery. Upon arrival to the ER patient had drainage from his L arm fistula. Patient was admitted to the hospitalist service. Vascular surgery and Nephrology were called on consultation. Patient was seen and examined at the bedside. Patient was seen this morning after he had his new permacath placed. He denies chest pain, shortness of breath, palpitations. Denies nausea, vomiting,abdominal pain. Has not experienced any constipation or diarrhea. Objective: Vitals (See below) General: Lying in bed, reporting some pain, awake / alert and oriented x 3 HEENT: NC, AT CVS: RRR, +S1S2 Chest: New permacath on R chest wall, dressing over L chest wall Lungs: Fair air entry b/l, -rhonchi/wheezing/rales Abdomen: Abdomen soft, -distension/tenderness Extremities: - Edema, - Calf tenderness, Left arm in dressing intact Assessment and plan: Infection at Left Arm Fistula and Perma Cath Sites - Patient remains hemodynamically stable - Wound cultures (Superficial) 03/06 and 03/07: S. Aureus; Blood cultures 03/06: Negative at 48 hours - CT Chest 03/06: 1. 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 The findings were verbally communicated via telephone conference with YOLANDA TALBERT at 9:23 PM EDT on 03/06/2019. The findings were acknowledged and understood. 2. Atrophic kidneys. 3. Small sliding hiatal hernia. 4. Prominence of centrilobular cord structures and thickening of the intralobular septa at the lung bases suggests pneumonitis. 5. 7 mm cyst in the right upper lobe. Bubbles are slightly thickened. This could represent a chronic bulla/bleb. No fluid to suggest active infection - CT L Arm 03/07: No abscess is visible. Postoperative gas is noted. There is some postoperative edema near the antecubital fossa. A dilated chronically c alcified venous channel is noted in the upper arm. - PermaCath on Left chest removed on 03/07; New PermaCath placed on 03/09 - c/w Zosyn (Day #4); Will DC Vancomycin - c/w Pain control with Morphine and Tylenol - Nephrology and Vascular surgery on consult ESRD on HD (MWF) - Patient has missed HD on Monday - Has received Dialysis on 03/07 - after he was unable to complete session on 03/06 - Nephrology on consult HTN - c/w Amlodipine, Carvedilol, Isosorbide Dinitrate DLP - c/w Atorvastatin Insomnia - c/w Ramelteon DVT prophylaxis - c/w Heparin Disposition: - New PermaCath has been placed; will go for HD today VS,Fishbone, I+O VS, Fishbone, I+O Laboratory Tests 03/09/19 05:19 Red Blood Count 2.80 L, Mean Corpuscular Volume 88.6, Mean Corpuscular Hemoglobin 29.6, Mean Corpuscular Hemoglobin Concent 33.5, Red Cell Distribution Width 16.4 H, Monocytes # (Auto) , Calcium Level 10.5 H Vital Signs Date Time Temp Pulse Resp B/P (MAP) Pulse Ox O2 Delivery O2 Flow Rate FiO2 03/09/19 10:22 17 03/09/19 09:28 75 153/74 03/09/19 09:10 98.3 95 03/06/19 22:47 Room Air I&O- Last 24 Hours up to 6 AM 03/09/19 06:00 Intake Total 840 ml Output Total 0 ml Balance 840 ml SHAMIKA BAEZ MD March 09, 2019 12:25
[2019-03-09] MEDS ORDERED: DARBEPOETIN 100 MCG/0.5 ML *DIALYSIS* SYRINGE (J0882) IV SCH (13:00)
--- NOTE | 2019-03-09 13:44 | IPN ---
DATE: 03/09/2019 Mr. Smith is seen this morning on his bedside. He just returned to his room after getting a new right internal jugular vein Perma-Cath placed. Apparently, he had problems with his left arm AV graft, which required surgery and then his surgical incision got infected. He had a Perma-Cath in the left upper chest which was being used for dialysis and that was also severely infected and removed on after dialysis. This morning he had the new Perma-Cath placed in right internal jugular vein which is going to be used for dialysis today. The patient is currently resting in his bed and denies any complaints. PHYSICAL EXAMINATION: Temperature 98.3 degrees Fahrenheit, heart rate 75 per minute and respiratory rate 18 per minute. Blood pressure 153/74 mmHg and oxygen saturation 95% on room air. His head is atraumatic. Neck is supple and jugular venous distention (JVD) is only mildly elevated. New Perma-Cath has some mild bleeding at the exit site. Heart: Sounds are regular and lungs clear to auscultation. Abdomen: Soft and nontender. Extremities: Have no cyanosis or clubbing. Left upper arm AV fistula site is covered with dressing and I did not open the dressing. Neurologically, he seems to have no focal deficit. Today's labs show WBC count 23.1, hemoglobin 8.3 and hematocrit 24.8. Sodium 132, potassium 4.2, CO2 25, BUN 56 and creatinine 10.40. Calcium level was 10.5 and magnesium 2.6. A C-reactive protein is 19.3. PROBLEMS: 1. End-stage renal disease: The patient is due for dialysis today and will be dialyzed early afternoon. 2. Infected Perma-Cath and AV fistula with leukocytosis. The patient had infected old fistula repair about a week ago and his infected Perma-Cath was removed on . He has a new Perma-Cath placed in right internal jugular vein today. His blood cultures have been negative and he remains on Zosyn and vancomycin. Catheter site culture did grow Staphylococcal aureus, which is sensitive to almost everything except penicillin. 3. Hyponatremia: His sodium level was as low as 127 a couple of days ago and has improved to 132. It is likely to improve further with dialysis today. 4. Anemia: Related to chronic end-stage renal disease and infections. At this point there is no emergent need for a transfusion. He will get Aranesp during dialysis. We will order 200 mcg of Aranesp instead of 100.
[2019-03-09] MEDS: diphenhydrAMINE 50 MG CAP PO PRN (18:21)
[2019-03-09] MEDS: RAMELTEON 8 MG TAB (ROZEREM) PO SCH (21:48)
[2019-03-10 02:00] VITALS: BP 136/66
[2019-03-10] MEDS: diphenhydrAMINE 50 MG CAP PO PRN (02:26)
[2019-03-10 06:00] VITALS: BP 127/71
[2019-03-10 06:28] LABS: HEMATOCRIT 25.6 % (42.0-52.0); HEMOGLOBIN 8.4 g/dl (13.5-17.5); MEAN CORPUSCULAR HGB CONC 32.8 g/dl (32.0-36.5); MEAN CORPUSCULAR VOLUME 91.4 fl (80.0-96.0); PLATELET COUNT, AUTOMATED 227 10^3/uL (150-450); WHITE BLOOD COUNT 20.4 10^3/uL (4.0-10.0)
[2019-03-10 06:53] LABS: C REACTIVE PROTEIN QUANTITATIV 18.9 MG/DL (0.00-0.30); CREATININE FOR GFR 7.68 MG/DL (0.70-1.30); GLOMERULAR FILTRATION RATE 9.6 (>56); MAGNESIUM LEVEL 2.3 MG/DL (1.8-2.4); POTASSIUM SERUM 3.9 MEQ/L (3.5-5.1)
[2019-03-10 07:11] LABS: EOSINOPHILS 1 % (0-5); LYMPHOCYTES 6 % (16-52); METAMYELOCYTES 2 % (0-0); MONOCYTES 7 % (0-8); MYELOCYTES 3 % (0-0); NEUTROPHILS 80 % (35-75)
[2019-03-10 07:12] LABS: ANISOCYTOSIS 1+; PLATELET ESTIMATE NORMAL (NORMAL)
--- NOTE | 2019-03-10 08:35 | IPN ---
DATE: 03/08/2019 SUBJECTIVE: Patient seen and examined this morning at the bedside. He reports his pain is adequately controlled. His PermaCath was pulled after dialysis yesterday. He continues on broad spectrum antibiotics. His blood cultures have remained negative. His wound cultures from both the fistula and the PermaCath are growing Staphylococcus Aureus. He denies any chest pain, shortness of breath or palpitations. PHYSICAL EXAMINATION: Vital signs: Temperature 97.6, pulse 71, respiratory rate 17, blood pressure 104/56, saturating 95% on room air. Intake yesterday was not fully recorded. Dialysis yesterday only removed 500 mL. Patient refused to be weighed on the bed scale today. General: Patient is seen sitting upright in bed. Middle aged male, well built, in no acute distress, oriented and interactive, but somewhat reluctant to participate in conversation. His extraocular muscles are intact. Normocephalic, atraumatic. Cardiac: S1, S2. Regular rate and rhythm. There is a dressing on the left chest wall where the PermaCath was removed. The lungs show symmetric air entry. No crackles or rales. Abdomen is soft and nontender. The lower extremities are negative for edema or clubbing. The left upper extremity has a dressing at the site of the fistula surgery. White count 24, hemoglobin 8.5, platelets 198, sodium 133, potassium 4.5, ferritin 5000, transferrin saturation 22%, CRP 24. Microbiology: Wound cultures from PermaCath and fistula site all growing Staphylococcus Aureus. Blood cultures negative for growth for 48 hours. INPATIENT MEDICATIONS: Reviewed by myself. Noted he was started on Lipitor. Remainder of medications are unchanged from prior. PROBLEMS: 1. End stage renal disease (ESRD) on hemodialysis on Monday, Monday, and Monday schedule. The patient missed his outpatient dialysis treatment on Monday due to infection and purulent drainage at the PermaCath site. Vascular cleared him to use the PermaCath. Subsequently he was dialyze din the hospital on March 07 without significant fluid removed. His PermaCath was pulled post dialysis and plan will be to continue PermaCath holiday with ongoing broad spectrum antibiotics and plan for new PermaCath placement with hemodialysis on Monday, March 09. His volume status is presently acceptable as are his electrolytes. 2. Anemia related to chronic renal failure, chronic inflammation and iron deficiency. Would hold off on giving him iron at present. His ferritin is 5000 and even though his iron is low the high ferritin is likely because of the inflammation and acute phase reactant. He continues on Aranesp. There is no need for transfusion at present. 3. Staphylococcus Aureus infection of PermaCath and AV fistula. The patient has a significantly elevated CRP, which is now downtrending. There is a rise in his white count. He continues on vancomycin and Zosyn. He is presently on a PermaCath holiday. His blood cultures have been negative. Vascular surgery is following. 4. Hyponatremia. It is secondary to chronic renal failure. It improves with dialysis. No specific intervention is needed. 5. Hypertension. His blood pressures have actually been soft and I am concerned because of the ongoing infection of his fistula site and prior PermaCath. I have written strict holding parameter with all of his antihypertensives.
[2019-03-10] MEDS: ISOSORBIDE DIN. (ISORDIL) 20 MG TAB PO SCH ×3 (08:46→20:15)
[2019-03-10] MEDS: HEPARIN SOD (PORCINE) 5000 UNITS/ML VIAL SC SCH ×2 (08:46→20:16)
[2019-03-10] MEDS: DOXYCYCLINE HYCLATE 100 MG TAB PO SCH ×2 (08:46→20:16)
[2019-03-10] MEDS: CARVedilol 12.5 MG TAB PO SCH ×2 (08:47→20:16)
[2019-03-10 10:00] VITALS: BP 131/60
[2019-03-10] MEDS: MORPHINE 4 MG/ML 1ML VIAL/SYRINGE (J2270) IV PRN (10:00)
[2019-03-10] MEDS ORDERED: MORPHINE 4 MG/ML 1ML VIAL/SYRINGE (J2270) IV PRN (11:45)
--- NOTE | 2019-03-10 12:11 | IPNPDOC ---
Text Note Date of Service The patient was seen on 03/10/19. NOTE Subjective: Patient is a 53 year old male with a PMHx of ESRD on HD (MWF), who presented to the ER after he was unable to get HD because of drainage from his PermCath. Patient was recently admitted to [facility] for infected L arm fistula, that was ligated and he had a PermaCath placed with vascular surgery. Upon arrival to the ER patient had drainage from his L arm fistula. Patient was admitted to the hospitalist service. Vascular surgery and Nephrology were called on consultation. Patient was seen and examined at the bedside. Patient has had no events overnight. He reports body aches. Denies chest pain, shortness of breath or palpitations. Denies nausea, vomiting, abdominal pain or diarrhea. Objective: Vitals (See below) General: Lying in bed, reporting some pain, awake / alert and oriented x 3 HEENT: NC, AT CVS: RRR, +S1S2 Chest: New permacath on R chest wall, dressing over L chest wall Lungs: Fair air entry b/l, this does not appear to be auscultated evidence of rhonchi, rales or wheezing Abdomen: Appears to be soft without evidence of distention or tenderness Extremities: No loss, or edema is appreciated, - Calf tenderness, Left arm in dressing intact Assessment and plan: Infection at Left Arm Fistula and Perma Cath Sites - Patient remains hemodynamically stable - Wound cultures (Superficial) 03/06 and 03/07: S. Aureus; Blood cultures 03/06: Negative at 48 hours - CT Chest 03/06: 1. 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 The findings were verbally communicated via telephone conference with YOLANDA TALBERT at 9:23 PM EDT on 03/06/2019. The findings were acknowledged and understood. 2. Atrophic kidneys. 3. Small sliding hiatal hernia. 4. Prominence of centrilobular cord structures and thickening of the intralobular septa at the lung bases suggests pneumonitis. 5. 7 mm cyst in the right upper lobe. Bubbles are slightly thickened. This could represent a chronic bulla/bleb. No fluid to suggest active infection - CT L Arm 03/07: No abscess is visible. Postoperative gas is noted. There is some postoperative edema near the antecubital fossa. A dilated chronically calcified venous channel is noted in the upper arm. - PermaCath on Left chest removed on 03/07; New PermaCath placed on 03/09 - Will start Doxycycline; Will DC Zosyn; s/p Vancomycin (Antibiotic day #5) - c/w Pain control with Morphine and Tylenol - Nephrology and Vascular surgery on consult ESRD on HD (MWF) - Patient has missed HD on Monday - Has received Dialysis on 03/07 - after he was unable to complete session on 03/06 - c/w Dialysis as scheduled - Nephrology on consult HTN - c/w Amlodipine, Carvedilol, Isosorbide Dinitrate DLP - c/w Atorvastatin Insomnia - c/w Ramelteon DVT prophylaxis - c/w Heparin Disposition: - Will taper down pain medications - Will start PT for DC home within next 24-48 hours VS,Fishbone, I+O VS, Fishbone, I+O Laboratory Tests 03/10/19 06:10 Red Blood Count 2.80 L, Mean Corpuscular Volume 91.4, Mean Corpuscular Hemo globin 30.0, Mean Corpuscular Hemoglobin Concent 32.8, Red Cell Distribution Width 16.7 H, Monocytes # (Auto) , Calcium Level 10.0 Vital Signs Date Time Temp Pulse Resp B/P (MAP) Pulse Ox O2 Delivery O2 Flow Rate FiO2 03/10/19 10:10 17 03/10/19 08:47 62 135/63 03/10/19 06:00 98.2 97 03/06/19 22:47 Room Air I&O- Last 24 Hours up to 6 AM 03/10/19 06:00 Intake Total 280 ml Output Total 2000 ml Balance -1720 ml SHAMIKA BAEZ MD March 10, 2019 12:11
[2019-03-10 14:00] VITALS: BP 128/75
--- NOTE | 2019-03-10 14:03 | IPN ---
DATE: 03/10/2019 Mr. Smith is seen this morning on his bedside. He was dialyzed yesterday via his new PermaCath which he tolerated well. He denies any nausea, vomiting, dyspnea or chest pain. He has been requiring narcotics for pain control which is being managed by hospitalist service. PHYSICAL EXAMINATION: Temperature 98.2 degrees Fahrenheit, heart rate 62 per minute and respiratory rate 18 per minute. Blood pressure 135/63 mmHg and oxygen saturation 97% on room air. His head is atraumatic. Neck is supple and without JVD or thyroid enlargement. A right sided PermaCath is without any active bleeding or drainage. Dressing at the site of left PermaCath removal is dry. Heart sounds are regular and lungs clear to auscultation. Abdomen soft and nontender. Bowel sounds are normal. Extremities have no cyanosis or clubbing. Left arm AV fistula is covered with dressing. Neurologically he is awake and at his baseline mentation. He is sitting at the edge of bed at the time of my visit. Today's labs show WBC count 20.4, hemoglobin 8.4 and hematocrit 25.6. Platelets 227. Sodium 133, potassium 3.9, CO2 26, BUN 33 and creatinine 7.68. Calcium 10.0 and magnesium 2.3. His C-reactive protein is down to 18.9. PROBLEMS: 1. End-stage renal disease. The patient was dialyzed yesterday and next dialysis will be due on March 12. At present there is no need for emergent dialysis today. His volume status is well-compensated and electrolytes are stable. 2. Infected AV fistula site and PermaCath. The patient had old infected PermaCath removed from the left upper chest and now had a new PermaCath on the right upper chest. He also had his left arm AV fistula surgical intervention previously. His dressing was changed this morning according to the patient. He remains on antibiotics and Dr. Lewis has put him on oral doxycycline. Blood cultures have been negative. 3. Anemia. No significant change and anemia is stable at this point. No other urgent intervention is indicated.
[2019-03-10 16:01] VITALS: BP 128/75
[2019-03-10] MEDS: RAMELTEON 8 MG TAB (ROZEREM) PO SCH (20:16)
[2019-03-10 22:00] VITALS: BP 128/83
[2019-03-11 06:00] VITALS: BP 123/64
[2019-03-11 07:06] LABS: HEMATOCRIT 26.6 % (42.0-52.0); HEMOGLOBIN 8.6 g/dl (13.5-17.5); MEAN CORPUSCULAR HEMOGLOBIN 30.1 pg (27.0-33.0); MEAN CORPUSCULAR HGB CONC 32.3 g/dl (32.0-36.5); PLATELET COUNT, AUTOMATED 267 10^3/uL (150-450); RED BLOOD COUNT 2.86 10^6/uL (4.30-6.10); WHITE BLOOD COUNT 17.4 10^3/uL (4.0-10.0)
[2019-03-11 07:27] LABS: EOSINOPHILS 2 % (0-5); LYMPHOCYTES 6 % (16-52); MONOCYTES 11 % (0-8); NEUTROPHILS 80 % (35-75)
[2019-03-11 07:28] LABS: ANISOCYTOSIS 1+; PLATELET ESTIMATE NORMAL (NORMAL)
[2019-03-11 07:39] LABS: C REACTIVE PROTEIN QUANTITATIV 21.1 MG/DL (0.00-0.30); CALCIUM LEVEL 10.9 MG/DL (8.5-10.1); CREATININE FOR GFR 10.3 MG/DL (0.70-1.30); GLOMERULAR FILTRATION RATE 6.9 (>56); MAGNESIUM LEVEL 2.4 MG/DL (1.8-2.4); POTASSIUM SERUM 4.3 MEQ/L (3.5-5.1)
[2019-03-11] MEDS: CARVedilol 12.5 MG TAB PO SCH ×2 (08:27→20:52)
[2019-03-11] MEDS: DOXYCYCLINE HYCLATE 100 MG TAB PO SCH ×2 (08:28→20:56)
[2019-03-11] MEDS: HEPARIN SOD (PORCINE) 5000 UNITS/ML VIAL SC SCH ×2 (08:28→20:56)
[2019-03-11] MEDS: ISOSORBIDE DIN. (ISORDIL) 20 MG TAB PO SCH ×3 (08:28→20:53)
[2019-03-11] MEDS ORDERED: HEPARIN 1,000 UNITS/ML 10ML VIAL (FOR RADIOLOGY& DIALYSIS ONLY) IV ONE (11:00)
[2019-03-11] MEDS ORDERED: HEPARIN 1,000 UNITS/ML 10ML VIAL (FOR RADIOLOGY& DIALYSIS ONLY) XX ONE (11:00)
--- NOTE | 2019-03-11 11:26 | IPNPDOC ---
Date Seen The patient was seen on 03/11/19. Progress Note Vascular Surgery Dr. Kerr HPI: 53 y/o M who is originally from [facility] and was visiting family in [place]. Pt has h/o AV fistula aneurysm, was seen in ER on 02/24/2019 for c/o bleeding from AV fistula site over left arm and was discharged home; pt came back to ER for c/o blood oozing out from AV fistula site. The pt was seen by Dr Kerr, vascular surgery with AV fistula site revision 02/26/19. Pt was scheduled to have surgery on March 12, 2019 at [facility] for new AV Fistula creation. The pt was seen in the office 03/05/19 to recheck AVF surgical site LUE. At that time serous yellowish drainage was noted form the surgical site, the pt was started on po Augmentin. The pt returned to the ED 03/06/19 with purulent drainage from permcath site and drainage from surgical site and the pt was admitted with AVF/permcath infection. The pt was started on IV Vanco/Zosyn. Vascular surgery was consulted. Pt is s/p IV Vanco/Zosyn, now D2 po Doxycycline Denies any fevers, chills, weakness, fatigue, Headache, Chest Pain, Shortness of breath, cough, palpitations, abdominal pain, N/V/D or changes in bowel or bladder habits. Medical History HTN, hypertensive nephropathy, ESRD on HD MWF, CHF- unknown type, nicotine dependence, HLD, Thoracic/Abd AA Surgical History AV fistula over left Arm AVF revision 02/26/19 Permcath 02/26/19 PE: GEN: 53yoM, appears stated age. Well-nourished, well developed. No acute distress. HEENT: Normocephalic, atraumatic. Moist mucous membranes. CHEST: Regular rate and rhythm, +S1, +S2 LUNGS: Clear to auscultation bilaterally. No wheezes, rales, or rhonchi. ABD: Round, soft, non-tender, non-distended. EXT: No lower extremity edema appreciated. SKIN: [place], dry, warm. The surgical site LUE has raleigh intact. 4 raleigh r emoved as per Dr Kerr 03/07. Wound continues to have yellowish drainage. No increased erythema, edema. Clean dressing intact. Permcath removed 03/07/19 after HD, no drainage noted this AM. NEURO: Alert and oriented x 3. No focal deficits appreciated. WC cath site 03/06/19 ROUTINE CULTURE RESULTS WOUND CULTURE Final Organism 1 STAPHYLOCOCCUS AUREUS QUANTITY OF GROWTH HEAVY WC Left arm 03/06/19 WOUND CULTURE Final Organism 1 STAPHYLOCOCCUS AUREUS QUANTITY OF GROWTH HEAVY Deep wound culture 03/07 x 2 MSSA BC x [address] LUE No abscess is visible. Postoperative gas is noted. There is some postoperative edema near the antecubital fossa. A dilated chronically calcified venous channel is noted in the upper arm. Electronically Signed by Yobani Connolly MD 03/07/2019 01:07 P A&P: 53 y/o M who is originally from [facility] and was visiting family in [place]. Pt has h/o AV fistula aneurysm, was seen in ER on 02/24/2019 for c/o bleeding from AV fistula site over left arm and was discharged home; pt came back to ER for c/o blood oozing out from AV fistula site. The pt was seen by Dr Kerr, vascular surgery with AV fistula site revision 02/26/19. Pt was scheduled to have surgery on March 12, 2019 at [facility] for new AV Fistula creation. The pt was seen in the office 03/05/19 to recheck AVF surgical site LUE. At that time serous yellowish drainage was noted form the surgical site, the pt was started on po Augmentin. The pt returned to the ED 03/06/19 with purulent drainage from permacath site and drainage from surgical site and the pt was admitted with AVF/permcath infection. The pt was started on IV Vanco/Zosyn. Vascular surgery is consulted. 1. AVF LUE, h/o AV fistula aneurysm, S/P AVF revision 02/26/19, with permcath insertion, now with purulent drainage/infection of Permcath site and AVF site LUE. WC with MSSA. Afebrile WBC 17. CRP 21.1 Pt is s/p IV Vanco/Zosyn, now D2 po Doxycycline Dr Kerr examined surgical site, there did not appear to be surrounding cellulitis/erythema, purulent material was drained from surgical site 03/07/19. BC x [address] LUE noted. Monitor. 2. Permcath site infection. S/P removal of Permcath 03/07/19 after HD, Permcath placed Rt chest 03/09/19 3. ESRD. HD as per nephrology. 4. Thoracic/Abd AA. Dr Kerr reviewed imaging, recommend outpt FU with his providers in [place], no acute issues. A-FIB/CHADSVASC A-FIB History Current/History of A-Fib/PAF?: No VS, I&O, 24H, Fishbone Vital Signs/I&O Vital Signs Date Time Temp Pulse Resp B/P (MAP) Pulse Ox O2 Delivery O2 Flow Rate FiO2 03/11/19 08:27 66 123/64 03/11/19 06:00 99.0 16 95 03/06/19 22:47 Room Air I&O- Last 24 Hours up to 6 AM 03/11/19 05:59 Intake Total 710 ml Balance 710 ml Laboratory Data 24H LABS Laboratory Tests 2 03/11/19 06:36: Immature Granulocyte % (Auto) , Nucleated Red Blood Cells % (auto) 0.0, Neutrophils 80H, Band Neutrophils 1, Lymphocytes (Manual) 6L, Monocytes (Manual) 11H, Eosinophils (Manual) 2, Platelet Estimate NORMAL, Anisocytosis 1+, Anion Gap 11, Glomerular Filtration Rate 6.9L, Blood Urea Nitrogen 47H, Creatinine 10.30*H, Sodium Level 131L, Potassium Level 4.3, Chloride Level 96L, Carbon Dioxide Level 24, Calcium Level 10.9H, Magnesium Level 2.4, C-Reactive Protein, Quantitative 21.10H CBC/BMP Laboratory Tests 03/11/19 06:36 Red Blood Count 2.86 L, Mean Corpuscular Volume 93.0, Mean Corpuscular Hemoglobin 30.1, Mean Corpuscular Hemoglobin Concent 32.3, Red Cell Distribution Width 17.1 H, Calcium Level 10.9 H Microbiology Microbiology 03/06/19 Blood Culture - Preliminary, Resulted No Growth after 72 hours. All specime... 03/06/19 Blood Culture - Preliminary, Resulted No Growth after 72 hours. All specime... 03/07/19 Gram Stain - Final, Complete 03/07/19 Wound Culture - Final, Complete Staphylococcus Aureus 03/07/19 Gram Stain - Final, Complete 5/9/19 Wound Culture - Final, Complete Staphylococcus Aureus 03/06/19 Wound Culture - Final, Complete Staphylococcus Aureus 03/06/19 Wound Culture - Final, Complete Staphylococcus Aureus Debora Card March 11, 2019 11:26
--- NOTE | 2019-03-11 12:02 | IPN ---
DATE OF VISIT: 03/11/2019 Mr. Smith is seen this morning on his bedside. He is lying in the bed without any acute distress. He denies any nausea, vomiting, fever or chills. On physical exam, temperature 99 degrees Fahrenheit, heart rate 66 per minute and respiratory rate 16 per minute. Blood pressure 123/64 mmHg and oxygen saturation 95% on room air. Head is atraumatic. He has a right upper chest new Perma-Cath without any bleeding or signs of infection. His neck veins are not abnormally distended. Heart sounds are regular and lungs clear to auscultation. Abdomen soft and nontender and bowel sounds are normal. Extremities have no cyanosis or clubbing. Left upper arm arteriovenous (AV) fistula is covered with dressing. Today's labs show WBC count 17.4, hemoglobin 8.6 and hematocrit 26.6. Sodium 131, potassium 4.3, CO2 24, BUN 47 and creatinine 10.3. Calcium level is 10.9 and magnesium 2.4. A C-reactive protein is 21.1, which is slightly higher than last 2 days. PROBLEMS: 1. End-stage renal disease. Patient is going to be dialyzed later this afternoon. We will use his new Perma-Cath. 2. Infected AV fistula in left arm and infected left upper chest Perma-Cath. His infected catheter has already been removed. He got his dressing change done for his left upper arm AV fistula site. He remains on oral antibiotic and is currently afebrile. I am concerned about possibility of ongoing infection in the surgical site and on his left arm. His C-reactive protein was improving but went up slightly today, though his white cell count is improving. 3. Anemia. This is related to end-stage renal disease and ongoing infection. We will continue to treat it with Aranesp and I have already increased the dose of Aranesp to 200 mcg once a week. He will get 200 mcg this week again.
[2019-03-11 15:00] VITALS: BP 175/106
[2019-03-11 15:34] VITALS: BP 160/92
--- NOTE | 2019-03-11 16:03 | IPNPDOC ---
Date Seen The patient was seen on 03/11/19. Progress Note SUBJECTIVE: Patient tells me that he is feeling better he tells me his energy is improving he does not feel as sick he denies any pain in his arm or chest. No shortness of breath nausea vomiting or diarrhea OBJECTIVE PHYSICAL EXAMINATION: VITAL SIGNS: Please see below. GENERAL: Frail -Ethiopian male laying in bed he appears tired but awake alert and oriented no acute distress disheveled HEENT: Moist mucous membranes no appreciable elevation CVP CARDIOVASCULAR: S1-S2 regular. RESPIRATORY: Clear to auscultation diminished breath sounds at the bases bilaterally. ABDOMINAL: Bowel sounds present abdomen soft EXTREMITIES: No clubbing cyanosis or edema NEUROLOGICAL: No focal deficits within the subcortical 4 extremities asymmetric cranial nerves appear grossly intact LABORATORY DATA, IMAGING STUDIES, MICROBIOLOGY: Please see below. DVT prophylaxis ordered?: [Heparin every 12] ASSESSMENT AND PLAN: This is a 53-year-old man with left arm fistula and permacath infection. 1. Infection at Left Arm Fistula and Perma Cath Sites: Afebrile improving leukocytosis downtrending he is only on doxycycline by mouth at this time for treatment of cellulitis his catheter has been exchanges wound is been opened. Massive surgery nephrology help is greatly appreciated blood cultures are nega tive. He's not been cleared by physical therapy however I suspect he is approaching discharge as he continues to improve daily 2. ESRD on HD (MWF) scheduled for dialysis today via his new permacath n ephrology greatly appreciated 3. HTN: c/w Amlodipine, Carvedilol, Isosorbide Dinitrate BP fairly well- controlled 4. DLP: c/w Atorvastatin 5. Insomnia: c/w Ramelteon 6. Anemia of end-stage renal disease: Patient is on Aranesp as per nephrology 7. Aortic dissection: Dr. Huerta's help is greatly appreciated he is recommended outpatient follow-up Disposition: Pending PT possibly home in the next 24-48 hours VS, I&O, 24H, Fishbone Vital Signs/I&O Vital Signs Date Time Temp Pulse Resp B/P (MAP) Pulse Ox O2 Delivery O2 Flow Rate FiO2 03/11/19 15:34 160/92 (114) 03/11/19 15:00 99.6 80 20 97 03/06/19 22:47 Room Air I&O- Last 24 Hours up to 6 AM 03/11/19 06:00 Intake Total 890 ml Balance 890 ml Laboratory Data 24H LABS Laboratory Tests 2 03/11/19 06:36: Immature Granulocyte % (Auto) , Nucleated Red Blood Cells % (auto) 0.0, Neutrophils 80H, Band Neutrophils 1, Lymphocytes (Manual) 6L, Monocytes (Manual) 11H, Eosinophils (Manual) 2, Platelet Estimate NORMAL, Anisocytosis 1+, Anion Gap 11, Glomerular Filtration Rate 6.9L, Blood Urea Nitrogen 47H, Creatinine 10.30*H, Sodium Level 131L, Potassium Level 4.3, Chloride Level 96L, Carbon Dioxide Level 24, Calcium Level 10.9H, Magnesium Level 2.4, C-Reactive Protein, Quantitative 21.10H CBC/BMP Laboratory Tests 03/11/19 06:36 Red Blood Count 2.86 L, Mean Corpuscular Volume 93.0, Mean Corpuscular Hemoglobin 30.1, Mean Corpuscular Hemoglobin Concent 32.3, Red Cell Distribution Width 17.1 H, Calcium Level 10.9 H Microbiology Microbiology 03/06/19 Blood Culture - Preliminary, Resulted No Growth after 72 hours. All specime... 03/06/19 Blood Culture - Preliminary, Resulted No Growth after 72 hours. All specime... 03/07/19 Gram Stain - Final, Complete 03/07/19 Wound Culture - Final, Complete Staphylococcus Aureus 03/07/19 Gram Stain - Final, Complete 03/07/19 Wound Culture - Final, Complete Staphylococcus Aureus 03/06/19 Wound Culture - Final, Complete Staphylococcus Aureus 03/06/19 Wound Culture - Final, Complete Staphylococcus Aureus PRISCILLA DESIR MD March 11, 2019 16:03
[2019-03-11] MEDS: ATORVASTATIN 10 MG TAB PO SCH (20:56)
[2019-03-11] MEDS: RAMELTEON 8 MG TAB (ROZEREM) PO SCH (20:56)
[2019-03-11 22:00] VITALS: BP 120/75
[2019-03-12 06:00] VITALS: BP 140/76
[2019-03-12 06:06] LABS: HEMATOCRIT 24.7 % (42.0-52.0); HEMOGLOBIN 7.8 g/dl (13.5-17.5); MEAN CORPUSCULAR HEMOGLOBIN 29.3 pg (27.0-33.0); MEAN CORPUSCULAR HGB CONC 31.6 g/dl (32.0-36.5); MEAN CORPUSCULAR VOLUME 92.9 fl (80.0-96.0); PLATELET COUNT, AUTOMATED 273 10^3/uL (150-450); RED BLOOD COUNT 2.66 10^6/uL (4.30-6.10); WHITE BLOOD COUNT 15.5 10^3/uL (4.0-10.0)
[2019-03-12 06:26] LABS: C REACTIVE PROTEIN QUANTITATIV 18.6 MG/DL (0.00-0.30); CALCIUM LEVEL 9.5 MG/DL (8.5-10.1); CREATININE FOR GFR 7.42 MG/DL (0.70-1.30); MAGNESIUM LEVEL 2.2 MG/DL (1.8-2.4); POTASSIUM SERUM 3.6 MEQ/L (3.5-5.1)
[2019-03-12 06:58] LABS: ANISOCYTOSIS 1+; EOSINOPHILS 3 % (0-5); LYMPHOCYTES 5 % (16-52); METAMYELOCYTES 2 % (0-0); MONOCYTES 5 % (0-8); NEUTROPHILS 85 % (35-75); PLATELET ESTIMATE NORMAL (NORMAL); POLYCHROMASIA 1+
[2019-03-12 06:59] LABS: GIANT PLATELETS 1+
[2019-03-12] MEDS: HEPARIN SOD (PORCINE) 5000 UNITS/ML VIAL SC SCH (08:37)
[2019-03-12 08:41] VITALS: BP 132/88
[2019-03-12] MEDS: DOXYCYCLINE HYCLATE 100 MG TAB PO SCH (08:41)
[2019-03-12] MEDS: CARVedilol 12.5 MG TAB PO SCH (08:41)
--- NOTE | 2019-03-12 08:41 | IPNPDOC ---
Date Seen The patient was seen on 03/12/19. Progress Note Vascular Surgery Dr. Kerr HPI: 53 y/o M who is originally from [facility] and was visiting family in [place]. Pt has h/o AV fistula aneurysm, was seen in ER on 02/24/2019 for c/o bleeding from AV fistula site over left arm and was discharged home; pt came back to ER for c/o blood oozing out from AV fistula site. The pt was seen by Dr Kerr, vascular surgery with AV fistula site revision 02/26/19. Pt was scheduled to have surgery on March 12, 2019 at [facility] for new AV Fistula creation. The pt was seen in the office 03/05/19 to recheck AVF surgical site LUE. At that time serous yellowish drainage was noted form the surgical site, the pt was started on po Augmentin. The pt returned to the ED 03/06/19 with purulent drainage from permcath site and drainage from surgical site and the pt was admitted with AVF/permcath infection. The pt was started on IV Vanco/Zosyn. Vascular surgery was consulted. Pt is s/p IV Vanco/Zosyn, now D3 po Doxycycline. Denies any chills, weakness, fatigue, Headache, Chest Pain, Shortness of breath, cough, palpitations, abdominal pain, N/V/D or changes in bowel or bladder habits. Medical History HTN, hypertensive nephropathy, ESRD on HD MWF, CHF- unknown type, nicotine dependence, HLD, Thoracic/Abd AA Surgical History AV fistula over left Arm AVF revision 02/26/19 Permcath 02/26/19 PE: GEN: 53yoM, appears stated age. Well-nourished, well developed. No acute distress. HEENT: Normocephalic, atraumatic. Moist mucous membranes. CHEST: Regular rate and rhythm, +S1, +S2 LUNGS: Clear to auscultation bilaterally. No wheezes, rales, or rhonchi. ABD: Round, soft, non-tender, non-distended. EXT: No lower extremity edema appreciated. SKIN: The surgical site LUE has raleigh intact. 4 raleigh removed as per Dr Kerr 03/07. Wound is noted to have small amount of sero sanguinous drainage on exam, dressings with yellowish drainage noted. No increased erythema, edema. Clean dressing applied. Permcath removed left chest 03/07/19 after HD, no drainage noted this AM. NEURO: Alert and oriented x 3. No focal deficits appreciated. WC cath site 03/06/19 ROUTINE CULTURE RESULTS WOUND CULTURE Final Organism 1 STAPHYLOCOCCUS AUREUS QUANTITY OF GROWTH HEAVY WC Left arm 03/06/19 WOUND CULTURE Final Organism 1 STAPHYLOCOCCUS AUREUS QUANTITY OF GROWTH HEAVY Deep wound culture 03/07 x 2 MSSA BC x [address] LUE No abscess is visible. Postoperative gas is noted. There is some postoperative edema near the antecubital fossa. A dilated chronically calcified venous channel is noted in the upper arm. Electronically Signed by Yobani Connolly MD 03/07/2019 01:07 P A&P: 53 y/o M who is originally from [facility] and was visiting family in [place]. Pt has h/o AV fistula aneurysm, was seen in ER on 02/24/2019 for c/o bleeding from AV fistula site over left arm and was discharged home; pt came back to ER for c/o blood oozing out from AV fistula site. The pt was seen by Dr Kerr, vascular surgery with AV fistula site revision 02/26/19. Pt was scheduled to have surgery on March 12, 2019 at [facility] for new AV Fistula creation. The pt was seen in the office 03/05/19 to recheck AVF surgical site LUE. At that time serous yellowish drainage was noted form the surgical site, the pt was started on po Augmentin. The pt returned to the ED 03/06/19 with purulent drainage from permacath site and drainage from surgical site and the pt was admitted with AVF/permcath infection. The pt was started on IV Vanco/Zosyn. Vascular surgery is consulted. 1. AVF LUE, h/o AV fistula aneurysm, S/P AVF revision 02/26/19, with permcath insertion, now with purulent drainage/infection of Permcath site and AVF site LUE. WC with MSSA. Tmax 100.1 WBC 15.5. Downtrending CRP 18.6, downtrending Pt is s/p IV Vanco/Zosyn, now D3 po Doxycycline Dr Kerr examined surgical site, purulent material was drained from surgical site 03/07/19. BC x [address] LUE noted. Continue to monitor. 2. Permcath site infection. S/P removal of Permcath 03/07/19 after HD, Permcath placed Rt chest 03/09/19 3. ESRD. HD as per nephrology. 4. Thoracic/Abd AA. Dr Kerr reviewed imaging, recommend outpt FU with his providers in [place], no acute issues. A-FIB/CHADSVASC A-FIB History Current/History of A-Fib/PAF?: No VS, I&O, 24H, Fishbone Vital Signs/I&O Vital Signs Date Time Temp Pulse Resp B/P (MAP) Pulse Ox O2 Delivery O2 Flow Rate FiO2 03/12/19 06:00 99.0 81 18 140/76 (97) 95 03/06/19 22:47 Room Air I&O- Last 24 Hours up to 6 AM 03/12/19 06:00 Intake Total 2030 ml Output Total 2000 ml Balance 30 ml Laboratory Data 24H LABS Laboratory Tests 2 03/12/19 05:33: Immature Granulocyte % (Auto) , Nucleated Red Blood Cells % (auto) 0.0, Neutrophils 85H, Lymphocytes (Manual) 5L, Monocytes (Manual) 5, Eosinophils (Manual) 3, Metamyelocytes 2H, Platelet Estimate NORMAL, Giant Platelets 1+, Polychromasia 1+, Anisocytosis 1+, Anion Gap 11, Glomerular Filtration Rate 1 0.0L, Blood Urea Nitrogen 26H, Creatinine 7.42H, Sodium Level 135L, Potassium Level 3.6, Chloride Level 97L, Carbon Dioxide Level 27, Calcium Level 9.5, Magnesium Level 2.2, C-Reactive Protein, Quantitative 18.60H CBC/BMP Laboratory Tests 03/12/19 05:33 Red Blood Count 2.66 L, Mean Corpuscular Volume 92.9, Mean Corpuscular Hemoglobin 29.3, Mean Corpuscular Hemoglobin Concent 31.6 L, Red Cell Distribution Width 17.0 H, Calcium Level 9.5 Microbiology Microbiology 03/06/19 Blood Culture - Final, Complete NO GROWTH AFTER 5 DAYS 03/06/19 Blood Culture - Final, Complete NO GROWTH AFTER 5 DAYS 03/07/19 Gram Stain - Final, Complete 03/07/19 Wound Culture - Final, Complete Staphylococcus Aureus 03/07/19 Gram Stain - Final, Complete 03/07/19 Wound Culture - Final, Complete Staphylococcus Aureus 03/06/19 Wound Culture - Final, Complete Staphylococcus Aureus 03/06/19 Wound Culture - Final, Complete Staphylococcus Aureus Debora Card March 12, 2019 08:40
[2019-03-12] MEDS: ISOSORBIDE DIN. (ISORDIL) 20 MG TAB PO SCH (08:45)
[2019-03-12] MEDS: amLODIPine 10 MG TAB PO SCH (08:46)
[2019-03-12] MEDS ORDERED: CARV12.5 PO (11:43)
[2019-03-12] MEDS ORDERED: DOXY100T PO (11:43)
[2019-03-12 14:00] VITALS: BP 135/72
--- NOTE | 2019-03-12 15:30 | DSES ---
DATE OF ADMISSION: 03/06/2019 DATE OF DISCHARGE: 03/12/2019 DISCHARGE DIAGNOSIS: Methicillin-sensitive Staphylococcus aureus (MSSA) PermaCath infection as well as MSSA fistula infection. SECONDARY DIAGNOSES: 1. End-stage renal disease on hemodialysis. 2. Poor hygiene. 3. Hypertension. 4. Dyslipidemia. 5. Insomnia. 6. Anemia of end-stage renal disease. 7. Aortic dissection. CONSULTATIONS: 1. Nephrology, Dr. Patten. 2. Vascular surgery, Dr. Kerr. HOSPITAL COURSE: The patient is a 53-year-old man visiting the area from [place] who presented on 03/06/2019 at that time with oozing from his left fistula and PermaCath sites. The sites were visibly dirty with poor hygiene on the dressing changes. He was seen by Dr. Kerr who did remove his PermaCath as well as open up his fistula site. The patient's blood cultures remained negative. He did grow methicillin-sensitive Staphylococcus aureus (MSSA). He was kept in the hospital and provided with hemodialysis in the hospital. He did have a new PermaCath access placed on the opposite side. He remained afebrile with improvement in symptoms. He was cleared by physical therapy. SUBJECTIVE: This morning, the patient tells me that he feels great and he wants to go home. He denies fevers, chills, chest pressure, shortness of breath, nausea, vomiting, or diarrhea. OBJECTIVE: VITAL SIGNS: Temperature is 98.9, maximum temperature (T-max) 100.1, pulse 81, respiratory rate 18, blood pressure 140/76, oxygen saturation 95% on room air. GENERAL: He is a slim -Spanish male laying in bed accompanied by his [id number]. The patient does not appear to be in any acute distress. He appears tired but awake, alert, and oriented times three and conversant. HEENT: Some bitemporal wasting. He has moist mucous membranes. No elevation of central venous pressure (CVP). CARDIOVASCULAR: S1, S2, regular. RESPIRATORY: Clear. ABDOMEN: Benign. EXTREMITIES: No clubbing, cyanosis, or edema. His dressing is taken down. His wound is stapled shut with no purulence or discharge. No fluctuance or tenderness. There is some swelling but good granulation tissue at the margins. His PermaCath site dressing is clean, dry and intact. LABORATORY STUDIES: WBC 15.5 trending down from a peak of 24, hemoglobin 7.8, platelet count 273. Chemistry Panel: Sodium 135, potassium 3.6, chloride 97, bicarbonate 27, BUN 26, creatinine 7.4. MICROBIOLOGY: His left arm culture was MSSA positive. The catheter site was MSSA positive. The catheter tip was MSSA positive in his arm. His blood cultures were all negative. IMAGING STUDIES: The patient did have a CT of extremity on 03/07/2019 that revealed no abscess, postoperative edema near the antecubital fossa. He also did have a chest CT that revealed aneurysm in the aortic arch, descending thoracic aorta and proximal abdominal aortica. Findings indicative of chronic aortic dissection. Atrophic kidneys, a 7 mm cyst in the right upper lobe, could be chronic that he should have outpatient followup regarding. ASSESSMENT AND PLAN: This is a 53-year-old man with an infection of his left arm fistula as well as PermaCath. 1. Left arm fistula and PermaCath. PermaCath has been removed. His fistula has been addressed. Dr. Kerr of vascular surgery help is greatly appreciated. At this time, the patient is only on doxycycline and has been doing quite well. At this time, he is medically stable for discharge home. We will continue him on an additional seven days of treatment for cellulitis related to his methicillin-sensitive Staphylococcus aureus (MSSA) infection. I have discussed this with vascular surgery service. I did inform the patient that given the invasive nature of his infections and the pervasive nature of them he is certainly at high risk for reinfection moving forward and did discuss about strict hygiene in caring for his PermaCath and his wound. Wound care as per vascular surgery. I also did tell him that he would be at risk for future infections as well and should he become febrile, low blood pressure, lightheaded, dizzy, feel unwell that he should return to the emergency room and that he will require close followup with vascular surgery either here in or in [place]. He elects to have this completed in [place] and does not wish to stay in the area for much longer. 2. End-stage renal disease on hemodialysis. He has a new PermaCath which is functioning quite well. Followup with nephrology for regular hemodialysis here or in [place]. 3. Hypertension. We have adjusted some of his medications while hospitalized. He is not requiring many of them and as such upon discharge, I will decrease his Coreg, hold his clonidine, and hold his isosorbide dinitrate. These are to be resumed as needed. 4. Dyslipidemia. He is continued on atorvastatin. 5. Aortic dissection, chronic and stable. Dr. Kerr has suggested he followup with a vascular surgeon in [place]. DISPOSITION: The patient has been cleared by physical therapy. He is being discharged to the care of his family. He is to followup with his primary care provider (PCP) as soon as possible, nephrology at dialysis in [place], vascular surgery as soon as possible and locally as needed. He has been advised to return to the emergency room (ER) if his symptoms worsen of he becomes febrile. He is to have a dry sterile dressing 4 x 4 gauze wrap with Kerlix every six hours. His diet is a renal diet. Activity is as prior to admission. MEDICATIONS AT THE TIME OF DISCHARGE: - carvedilol 25 mg twice a day - doxycycline 100 mg by mouth twice a day - acetaminophen 1 gram daily as needed for pain - amlodipine 10 mg daily - atorvastatin 10 mg three times a week Monday, Monday, Monday - calcium carbonate 800 mg every meals - cyclobenzaprine 5 mg daily as needed for cramps - diphenhydramine 25 mg daily as needed for itching, intravenously three times a week Monday, Monday, Monday at dialysis diphenhydramine - oxycodone/acetaminophen 5/325 one tablet every four hours as needed for pain Greater than 45 minutes spent organizing disposition.
--- NOTE | 2019-03-13 19:39 | IPNPDOC ---
Text Note Date of Service The patient was seen on 03/12/19. NOTE Nephrology Service: Subjective: Patient seen and examined at bedside. Denies overnight events and does not have any acute complaints today. Denies fevers, chills, chest pain, SOB, nausea, vomiting, abdominal pain, diarrhea, constipation. Last dialysis was on 03/11/19 with 2000 mL fluid removed. He states may be discharged today. Objective: Vitals: T 99 P 81 RR 18 BP 140/76 Pulse Ox: 95% room air Intake: 1910 ml Output: 2000 ml Balance: (-) 90 ml GENERAL APPEARANCE: Middle aged, pleasant and cooperative, male lying in bed in NAD. Awake, alert, oriented x 3. PSYCHIATRIC: Flat affect, frustrated mood. No overt signs of depression/ anxiety. HEENT: NCAT. Sclera nonicteric NECK: Supple. No JVD. RESPIRATORY: Clear to Auscultation bilaterally. No wheezes/rales/rhonchi. CHEST: (+)Tunneled hemodialysis catheter in the R chest wall. CARDIOVASCULAR: Normal S1S2, RRR, no murmurs appreciated. ABDOMEN: Soft, nontender, nondistended. Normoactive bowel sounds. EXTREMITIES: No edema. No clubbing/cyanosis. (+)LUE AV fistula. INTEGUMENTARY: Warm and dry skin. Normal turgor. NEUROLOGICAL: No focal neurologic deficits appreciated on inspection. Laboratory data: CBC: WBC 15.5, Hgb 7.8, Platelets 273 BMP: Na 135, K 3.6, CO2 27, BUN 26, Cr 7.42, Glucose 128, Ca 9.5, Mg 2.2 CRP: 18.60 Imaging: No new imaging today. No medication changes noted today. Assessment/Plan: 1. End-stage renal disease: Last dialysis was on 03/11/19 with 2000 mL removed via his new permacath. Tolerated procedure well. Renal function stable and electrolytes are acceptable. 2. Infected AV fistula in left arm and infected left upper chest Perma-Cath: The infected catheter was removed. Dressing for LUE AV fistula site has been changed. Remains on PO doxycycline day #3 and is currently afebrile. Concern is for an infection going on at the surgical site and in L arm. CRP has been trending down which is a good sign. WBC also trending down, which is another good sign. 3. Anemia: Secondary to ESRD and ongoing infection. Continue tx with Aranesp at 200 mcg once a week with HD. From Nephrology standpoint, patient can be discharged home and treated as outp atient. My preceptor for this patient encounter was Dr. Alice Patten, and was physically present in the building during the encounter and was fully available. As needed, all aspects of the patient interview, examination, medical decision making process, and medical care plan development were reviewed and approved by the preceptor. Preceptor is aware and concurs with the plan as stated in the jahaira dy of this note and will attest to such by his/her cosignature. A-FIB/CHADSVASC A-FIB History Current/History of A-Fib/PAF?: No Current Oral Anticoagulant The: No VS,Fishbone, I+O VS, Fishbone, I+O Laboratory Tests 03/12/19 05:33 Red Blood Count 2.66 L, Mean Corpuscular Volume 92.9, Mean Corpuscular Hemoglobin 29.3, Mean Corpuscular Hemoglobin Concent 31.6 L, Red Cell Distribution Width 17.0 H, Calcium Level 9.5 Vital Signs Date Time Temp Pulse Resp B/P (MAP) Pulse Ox O2 Delivery O2 Flow Rate FiO2 03/12/19 14:00 98.5 85 20 135/72 (93) 96 03/06/19 22:47 Room Air I&O- Last 24 Hours up to 6 AM 03/12/19 06:00 Intake Total 2030 ml Output Total 2000 ml Balance 30 ml MARCELO LECHUGA DO March 12, 2019 22:30
--- NOTE | 2019-04-05 09:42 | RO ---
DATE OF PROCEDURE: 03/09/2019 PREOPERATIVE DIAGNOSIS: Dysfunctional left arm fistula, infected left internal jugular PermCath. POSTOPERATIVE DIAGNOSIS: Dysfunctional left arm fistula, infected left internal jugular PermCath. PROCEDURE: Ultrasound and fluoroscopic guided right internal jugular vein 19 cm tipped cuff tunneled central venous catheter placement with an EVENMORE PermCath. ATTENDING SURGEON: Dr. Alea Kerr JOB SETTER HONING: Laya No ANESTHESIA: Local, MAC. INDICATIONS: The patient is a 53-year-old male who requires access for hemodialysis who will undergo placement of a right internal jugular vein tunneled central venous catheter. ESTIMATED BLOOD LOSS: 5 mL. IV FLUIDS: 25 mL. HEPARIN: None. COMPLICATIONS: None. DRAINS: None. SPECIMENS: None. IMPLANTS: None. DESCRIPTION OF PROCEDURE: The patient was taken to the operating room, placed supine on the operating room table and then prepped and draped in a standard surgical fashion. Ultrasound was used to guide cannulation of the right internal jugular vein which was then essentially dilated under fluoroscopic guidance and introducer sheath was positioned followed by the PermCath which was positioned with the tip in the superior vena cava/right atrial junction. The catheter was secured to the anterior chest wall after both ports were aspirated and noted to aspirate easily and then flushed with heparinized saline. The catheter dressings were then applied. The patient tolerated the procedure well. All instrument, sponge and needle counts were correct at the end of case. There were no complications. Dr. Kerr was present for and directed the entire case. The patient was transferred to the recovery room and subsequently to the floor in stable condition with the tunneled central venous catheter stable for use for hemodialysis access.
--- NOTE | 2019-04-05 12:12 | RO ---
DATE OF PROCEDURE: 03/08/2019 PREOPERATIVE DIAGNOSIS: Infected left internal jugular vein tunneled central venous catheter. POSTOPERATIVE DIAGNOSIS: Infected left internal jugular vein tunneled central venous catheter. PROCEDURE: Left internal jugular vein tunneled central venous catheter removal. ATTENDING SURGEON: Dr. Alea Kerr AUTOM[employer]BILE SERVICE STATION MECHANIC: None. INDICATION: The patient is a 53-year-old male with end-stage renal disease who underwent ligation of an aneurysmal bleeding left arm AV fistula and placement of a PermCath who has now had pus draining from the PermCath. The patient will undergo removal of the PermCath. ANESTHESIA: None. ESTIMATED BLOOD LOSS: Minimal. COMPLICATIONS: None. DRAINS: None. SPECIMENS: None. IMPLANTS: None. DESCRIPTION OF PROCEDURE: The patient was prepped and draped. The sutures holding the PermCath in place were removed. Manual traction was applied to the PermCath which spontaneously released the PermCath. Manual compression was applied at the puncture site for hemostasis after which dressings were applied.
== END 2019-03-12 14:45 | disposition home or self-care (01) | DRG 314 ==
LOC: EDBD 18:34 → EDSEX 18:34 → M ED 18:34 → M ED INP 21:14 → M MSPAV 23:50
PROVIDERS: ADMIT Internal Medicine; ATTEND Internal Medicine
PROC: 5A1D70Z Performance of Urinary Filtration, Intermittent, Less than 6 Hours Per Day (ICD-10-PCS; 2019-03-07)
PROC: 02HV33Z Insertion of Infusion Device into Superior Vena Cava, Percutaneous Approach (ICD-10-PCS; principal; 2019-03-08)
PROC: 0JH63XZ Insertion of Tunneled Vascular Access Device into Chest Subcutaneous Tissue and Fascia, Percutaneous Approach (ICD-10-PCS; 2019-03-08)
PROC: 0JPT0XZ Removal of Tunneled Vascular Access Device from Trunk Subcutaneous Tissue and Fascia, Open Approach (ICD-10-PCS; 2019-03-08)
PROC: 02PY33Z Removal of Infusion Device from Great Vessel, Percutaneous Approach (ICD-10-PCS; 2019-03-08)
DX: T82.7XXA Infection and inflammatory reaction due to other cardiac and vascular devices, implants and grafts, initial encounter (principal); N18.6 End stage renal disease; I13.2 Hypertensive heart and chronic kidney disease with heart failure and with stage 5 chronic kidney disease, or end stage renal disease; E87.1 Hypo-osmolality and hyponatremia; I71.2 Thoracic aortic aneurysm, without rupture; E78.5 Hyperlipidemia, unspecified; G47.00 Insomnia, unspecified; D63.1 Anemia in chronic kidney disease; B95.61 Methicillin susceptible Staphylococcus aureus infection as the cause of diseases classified elsewhere; Z79.899 Other long term (current) drug therapy; F17.200 Nicotine dependence, unspecified, uncomplicated; I50.9 Heart failure, unspecified; K44.9 Diaphragmatic hernia without obstruction or gangrene; Y83.1 Surgical operation with implant of artificial internal device as the cause of abnormal reaction of the patient, or of later complication, without mention of misadventure at the time of the procedure